=== PATIENT | female | born 1940 | race Caucasian/White ===

== ENCOUNTER → 2016-07-26 | Outpatient (RCR) ==
[2016-05-27 11:41] VITALS: BMI 27.4
== END ==
LOC: NEWBEG 06-26 00:01
PROVIDERS: ATTEND Psychiatry & Neurology Psychiatry
DX: F43.23 Adjustment disorder with mixed anxiety and depressed mood (principal); F06.0 Psychotic disorder with hallucinations due to known physiological condition; F01.51 Vascular dementia, unspecified severity, with behavioral disturbance
CPT/HCPCS: 90837; 90853; 99214

== ENCOUNTER → 2016-08-23 | Outpatient (RCR) ==
[2016-05-27 11:41] VITALS: BMI 27.4
== END ==
LOC: NEWBEG 07-27 09:07
PROVIDERS: ATTEND Psychiatry & Neurology Psychiatry
DX: F43.23 Adjustment disorder with mixed anxiety and depressed mood (principal); F06.0 Psychotic disorder with hallucinations due to known physiological condition; F01.51 Vascular dementia, unspecified severity, with behavioral disturbance
CPT/HCPCS: 90837; 99214

== ENCOUNTER 2016-08-24 09:05 | Outpatient (CLI) ==
[2016-05-27 11:41] VITALS: BMI 27.4
[2016-08-24 09:31] LABS: BASOPHILS # (AUTO) 0.1 K/uL (0-0.2); BASOPHILS % (AUTO) 1.1 % (0.0-3.0); EOSINOPHILS # (AUTO) 0.2 K/ul (0.0-0.7); EOSINOPHILS % (AUTO) 3.8 % (0.0-7.0); HEMATOCRIT 34.6 % (37.0-47.0); HEMOGLOBIN 10.5 g/dl (12.0-16.0); IMMATURE GRANULOCYTE % (AUTO) 0.3 % (0.0-5.0); LYMPHOCYTES % (AUTO) 32.4 (10.0-50.0); MEAN CORPUSCULAR HEMOGLOBIN 24.8 pg (27.0-31.0); MEAN CORPUSCULAR HGB CONC 30.3 (31.8-35.4); MEAN CORPUSCULAR VOLUME 81.6 fl (81.0-99.0); MONOCYTES # (AUTO) 0.3 K/uL (0.4-2.0); MONOCYTES % (AUTO) 5.4 (0-10); NEUTROPHILS # (AUTO) 3.6 K/ul (2.0-6.9); PLATELET COUNT 239 10^3/uL (140-440); RED BLOOD COUNT 4.24 10^6/ul (4.20-5.40); WHITE BLOOD COUNT 6.29 K/ul (4.6-10.2)
== END 2016-08-24 09:06 | disposition home or self-care (01) ==
LOC: LAB 09:05
PROVIDERS: ATTEND Psychiatry & Neurology Psychiatry
DX: F43.23 Adjustment disorder with mixed anxiety and depressed mood (principal); F06.0 Psychotic disorder with hallucinations due to known physiological condition; F01.51 Vascular dementia, unspecified severity, with behavioral disturbance; Z79.899 Other long term (current) drug therapy
CPT/HCPCS: 36415; 80178; 84443; 85025

== ENCOUNTER 2016-09-16 10:30 | Outpatient (RCR) ==
[2016-05-27 11:41] VITALS: BMI 27.4
== END 2016-09-23 ==
LOC: NEWBEG 10:30
PROVIDERS: ATTEND Psychiatry & Neurology Psychiatry
DX: F43.23 Adjustment disorder with mixed anxiety and depressed mood (principal); F06.0 Psychotic disorder with hallucinations due to known physiological condition; F01.51 Vascular dementia, unspecified severity, with behavioral disturbance
CPT/HCPCS: 90834; 99213; 99214

== ENCOUNTER 2017-02-08 16:13 | Outpatient (CLI) ==
[2016-05-27 11:41] VITALS: BMI 27.4
== END 2017-02-08 16:14 ==
LOC: AMBL 16:13
PROVIDERS: ATTEND Family Medicine
DX: R11.0 Nausea (principal); R61 Generalized hyperhidrosis

== ENCOUNTER 2017-07-24 16:07 | Inpatient (IN) ==
[2017-07-24] MEDS ORDERED: DUONEB NEB STA (16:26)
[2017-07-24] MEDS ORDERED: PREDNISONE PO STA (16:28)
--- NOTE | 2017-07-24 17:16 | CT ---
EXAM: CT chest without contrast HISTORY: Cough COMPARISON: Chest x-ray 05/27/2016 TECHNIQUE: Serial axial images of the chest were obtained from the lung apices to the upper abdomen without contrast. These were viewed in multiple planes. FINDINGS: The thyroid is normal. The visualized vessels are unremarkable without aneurysm or stenos is. The heart is normal in size without pericardial effusion. There are nonpathologically enlarged mediastinal or hilar lymph nodes. Calcified hilar lymph nodes and mediastinal lymph node are present. There is no pneumothorax or pleural effusion. There is bilateral mild central airway thickening. Th ere is minimal nodular ground-glass in the left lung apex on image 11. There is mild airway thickeni ng and ground-glass in the inferior lingula in the left lower lobe. The airways are maintained. Limited views of the soft tissues in the upper abdomen demonstrate prior cholecystectomy. Spleen dem onstrates calcified granulomas. Osseous structures are unremarkable. IMPRESSION: 1. Central and small airway thickening, most pronounced in the left lower lobe with mild hazy ground -glass suggestive of atypical infection/pneumonia. 2. Sequela of old granulomatous disease.
--- NOTE | 2017-07-24 17:24 | ED.PDOC ---
General ED Provider: Dr. JULIO DOUGLASS Chief Complaint: Respiratory Complaint Stated Complaint: cough, wheez , flu like symptoms Time Seen by Physician: 16:10 (seen with JOÃO ALONSO AT ALL TIMES ) Mode of Arrival: Wheelchair Information Source: Patient, Family Exam Limitations: No limitations Primary Care Provider: RADHA MENA Referred to ED by: Other (2 ROUNDS OF ANTIBIOTIC HAS NOT IMPROVED THE PT) Nursing and Triage Documentation Reviewed and Agree: Yes Reviewed sepsis parameters & appropriate labs ordered?: Yes System Inflammatory Response Syndrome: Not Applicable Sepsis Protocol: For patient's 13 years and over: Temp is 96.8 and below OR 101 and greater Pulse >90 BPM Resp >20/minute Acutely Altered Mental Status Are patient's symptoms suggestive of a new infection, such as: -Pneumonia -Skin, Soft Tissue -Endocarditis -UTI -Bone, Joint Infection -Implantable Device -Acute Abdominal Infection -Wound Infection -Meningitis -Blood Stream Catheter Infection -Unknown System Inflammatory Response Syndrome: Not Applicable Respiratory Complaint Exam - Respiratory Complaint/Exam Onset/Duration: 1 WEEK OF FLU LIKE SYMP NOT IMPROVED Symptoms Are: Still present Timing: Intermittent Initial Severity: Moderate Current Severity: Moderate Location: Nose, Throat, Chest Character: Reports: Non-productive cough Aggravating: Reports: Weather, Recumbent position Alleviating: Reports: Bronchodilators Associated Signs and Symptoms: Reports: Chills, URI, Nasal congestion Related History: Reports: Similar episode History of Healthcare-Acquired Pneumonia: No Related Surgical History: Reports: None Pulmonary Embolism Risk Factors: Bedrest Cardiac Risk Factors: Reports: CAD, Diabetes, Hypertension Pseudomonas Risk Factors: Reports: None Tuberculosis Risk Factors: Reports: None Status Asthmaticus Risk Factors: Reports: None Home Oxygen Use: No Recent Stress Test: No Recent Echo/LV Function: No Current Antibiotic Use: Yes (COMPELETED 2 ROUNDS ) Current Asthma Medication Use: No Respiratory Distress: Mild Inadequate Respiratory Effort: No Dysphagia Present: No Stridor Present: No JVD Present: No Retractions: Not Present Diminished Breath Sounds: Yes Prolonged Respiration: Expiratory phase Grunting Respirations: No Kussmaul Respirations: No Differential Diagnoses: COPD Exacerbation, Pneumonia, Bronchitis Quality Indicators For Pneumonia: Empiric Antibiotic Rx Non-Traumatic Chest Pain Syncope: EKG Performed Review of Systems - Review Of Systems Constitutional: Reports: Malaise Eyes: Reports: No symptoms Ears, Nose, Mouth, Throat: Reports: No symptoms Respiratory: Reports: Cough Cardiac: Reports: No symptoms GI: Reports: No symptoms : Reports: No symptoms Musculoskeletal: Reports: No symptoms Skin: Reports: No symptoms Neurological: Reports: No symptoms Endocrine: Reports: No symptoms Hematologic/Lymphatic: Reports: No symptoms All Other Systems: Reviewed and Negative Past Medical History - Past Medical History Previously Healthy: Yes Endocrine: Reports: DM 2, Hypothyroid Cardiovascular: Reports: CAD, Hypertension Respiratory: Reports: None Hematological: Reports: None Gastrointestinal: Reports: Other Genitourinary: Reports: None Neuro/Psych: Reports: 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 Denies: Bipolar Disorder (on lithium...) Musculoskeletal: Reports: None Cancer: Reports: None Last Menstrual Period: hysterectomy Other Pertinent Past Medical History: PARKINSON'S/STROKE LEFT SIDE AFFECTED - Surgical History General Surgical History: Reports: Hysterectomy, Cholecystectomy, Adenoidectomy , Other (COLON RESECTION DUE TO OBSTRUCTION) - Family History Family History: Reports: Unknown - Social History Smoking Status: Never smoker Hx Substance Use: No Alcohol Screening: None Physical Exam - Physical Exam Appearance: Ill-appearing Ill-appearing: Moderate Pain Distress: Mild Eyes: DARLING, EOMI, Conjunctiva clear ENT: Ears normal, Nose normal, Oropharynx normal Respiratory: Wheezes Cardiovascular: RRR, Pulses normal, No rub, No murmur GI/: Soft, Nontender, No masses, Bowel sounds normal, No Organomegaly Musculoskeletal: Normal strength, ROM intact, No edema, No calf tenderness Skin: Warm, Dry, Normal color Neurological: Sensation intact, Motor intact, Reflexes intact, Cranial nerves intact, Alert, Oriented Psychiatric: Affect appropriate, Mood appropriate Interpretation - Radiology Interpretation Radiology Interpretation By: Radiologist Radiology Results: Positive (LLL PNEUMONIA) Critical Care Note - Critical Care Note Total Time (mins): 0 Course - Course Hematology/Chemistry: 07/26/17 08:41 07/25/17 05:22 Orders, Labs, Meds: Lab Review 07/24/17 07/24/17 07/24/17 16:30 16:30 16:30 WBC 13.58 H RBC 4.23 Hgb 11.9 L Hct 35.1 L MCV 83.0 MCH 28.1 MCHC 33.9 RDW Coeff of Jasmin 14.6 Plt Count 210 Immature Gran % (Auto) 0.6 Neut % (Auto) 67.4 Lymph % (Auto) 24.7 Pierce % (Auto) 6.3 Eos % (Auto) 0.4 Baso % (Auto) 0.6 Immature Gran # (Auto) 0.1 Neut # 9.2 H Lymph # 3.4 Pierce # 0.9 Eos # 0.1 Baso # 0.1 Sodium 140 Potassium 3.8 Chloride 107 Carbon Dioxide 21 L Anion Gap 15.8 BUN 22 H Creatinine 1.20 Estimated GFR (MDRD) 44.00 BUN/Creatinine Ratio 18.33 Glucose 107 Calcium 10.2 Total Bilirubin 0.4 AST 20 ALT 21 Alkaline Phosphatase 80 Total Creatine Kinase 161 CK-MB (CK-2) 2.3 CK-MB (CK-2) % 1.59719 Troponin I < 0.0100 Total Protein 7.0 Albumin 3.5 Globulin 3.5 Albumin/Globulin Ratio 1.00 Procalcitonin 0.19 Orders Category Date Time Status EKG-(ED ONLY) Stat CARDIO 07/24/17 16:19 Completed NEBULIZER TREATMENT Stat CARDIO 07/24/17 16:26 Completed BLOOD CULTURE Stat LAB 07/24/17 16:30 Results CBC W/ AUTO DIFF Stat LAB 07/24/17 16:30 Completed COMPREHENSIVE METABOLIC PANEL Stat LAB 07/24/17 16:30 Completed CREATINE KINASE Stat LAB 07/24/17 16:30 Completed PROCALCITONIN Stat LAB 07/24/17 16:30 Completed TROPONIN I Stat LAB 07/24/17 16:30 Completed Ceftriaxone Sodium [Rocephin] MEDS 07/24/17 19:13 Discontinued 1 gm .ROUTE .STK-MED ONE Ceftriaxone Sodium [Rocephin] 1 gm MEDS 07/24/17 17:28 Discontinued 0.9 % Sodium Chloride [Sodium Chloride] 50 ml IV ONCE Ipratropium/Albuterol Neb [Duoneb] MEDS 07/24/17 16:26 Discontinued 1 vial NEB ONCE STA Prednisone MEDS 07/24/17 16:28 Discontinued 40 mg PO ONCE STA CT CHEST W/O CONTRAST Stat RADS 07/24/17 16:20 Completed Medications Generic Name Dose Route Start Last Admin Trade Name Freq PRN Reason Stop Dose Admin Acetaminophen 325 mg 07/25/17 06:03 Tylenol PO Q4-6H PRN Mild Pain Amlodipine Besylate 5 mg 07/25/17 09:00 07/28/17 08:58 Norvasc PO 5 mg DAILY JERI Administration Azelastine HCl 1 spray 07/25/17 10:00 07/28/17 08:56 Astelin 0.1% APRIL 1 spray BID JERI Administration Azithromycin 250 mg 07/26/17 09:00 07/28/17 08:58 Zithromax PO 07/29/17 23:59 250 mg DAILY JERI Administration Benzonatate 100 mg 07/25/17 17:07 07/27/17 14:08 Tessalon Perles PO 100 mg TID PRN Administration Cough Budesonide/Formoterol Fumarate 2 puff 07/27/17 21:00 07/28/17 08:56 Symbicort 160-4.5 Mcg Inhaler IH 2 puff BID JERI Administration Colestipol HCl 1 gm 07/26/17 15:02 07/28/17 08:57 Colestid PO 1 gm TID PRN Administration Diarrhea Docusate Sodium 100 mg 07/25/17 06:04 Colace PO DAILY PRN Constipation Fluticasone Propionate 1 spray 07/25/17 06:30 07/27/17 09:01 Flonase APRIL 1 spray DIRECTED JERI Administration Guaifenesin 1,200 mg 07/27/17 21:00 07/28/17 08:57 Mucinex PO 1,200 mg Q12HR JERI Administration Ceftriaxone Sodium 1 gm/ 50 mls @ 75 mls/hr 07/26/17 09:00 07/28/17 08:59 Sodium Chloride IV 75 mls/hr DAILY JERI Administration Ketorolac Tromethamine 30 mg 07/25/17 15:21 07/28/17 09:47 Toradol IVP 30 mg Q8H PRN Administration moderate to severe pain Levalbuterol HCl 1 vial 07/28/17 00:00 07/28/17 17:00 Xopenex 1.25 Mg NEB 1 vial RTQ6H JERI Administration Levothyroxine Sodium 75 mcg 07/25/17 06:30 07/28/17 05:39 Synthroid PO 75 mcg QDAC JERI Administration Lisinopril 10 mg 07/25/17 09:00 07/28/17 08:58 Zestril PO 10 mg DAILY JERI Administration Methylprednisolone Sodium Succinate 40 mg 07/25/17 09:00 07/28/17 09:47 Solu-Medrol 40 Mg IVP 40 mg Q12HR JERI Administration Montelukast Sodium 10 mg 07/25/17 09:00 07/28/17 08:58 Singulair PO 10 mg DAILY JERI Administration Morphine Sulfate 2 mg 07/24/17 22:18 07/28/17 13:46 Morphine 2 Mg/Ml Syringe IVP 2 mg Q2H PRN Administration Severe Pain Non-Formulary Medication 3 mg 07/25/17 21:00 07/27/17 22:04 Melatonin [Melatonin] PO Not Given BEDTIME JERI Ondansetron HCl 4 mg 07/25/17 15:21 07/27/17 14:26 Zofran 4 Mg/2 Ml IVP 4 mg Q6H PRN Administration Nausea/Vomitting Phenol/Menthol 1 spray 07/25/17 08:26 07/25/17 09:25 Chloraseptic [place] MM 1 spray Q2H PRN Administration Sore Throat Ranitidine HCl 150 mg 07/25/17 21:00 07/27/17 22:02 Zantac PO 150 mg BEDTIME JERI Administration Sodium Chloride 1 syr 07/26/17 21:00 07/28/17 13:46 Saline Flush IVF 1 syr Q8HR JERI Administration Sodium Chloride 1 syr 07/26/17 19:23 07/28/17 09:00 Saline Flush IVF 1 syr PRN PRN Administration Flush site Temazepam 30 mg 07/25/17 21:00 07/27/17 22:02 Restoril PO 30 mg BEDTIME JERI Administration Discontinued Medications Generic Name Dose Route Start Last Admin Trade Name Freq PRN Reason Stop Dose Admin Albuterol/Ipratropium 1 vial 07/24/17 16:26 07/24/17 16:53 Duoneb NEB 07/24/17 16:27 1 vial ONCE STA Administration Albuterol/Ipratropium 1 vial 07/25/17 00:00 07/27/17 04:55 Duoneb NEB 1 vial RTQ6H JERI Administration Albuterol/Ipratropium 1 vial 07/27/17 10:00 07/27/17 21:03 Duoneb NEB Not Given RTQID JERI Azelastine HCl 1 spray 07/25/17 06:30 Astelin 0.1% APRIL DIRECTED JERI Azithromycin 500 mg 07/25/17 17:06 07/25/17 17:32 Zithromax PO 07/25/17 17:07 500 mg ONCE STA Administration Cefdinir 300 mg 07/25/17 09:00 07/25/17 09:22 Omnicef PO Not Given TID JERI Colestipol HCl 1 gm 07/25/17 09:00 07/26/17 15:01 Colestid PO Not Given TID JERI Ceftriaxone Sodium 1 gm/ 50 mls @ 75 mls/hr 07/24/17 17:28 07/24/17 17:46 Sodium Chloride IV 07/24/17 18:07 Not Given ONCE STA Ceftriaxone Sodium 1 gm/ 50 mls @ 75 mls/hr 07/25/17 09:00 07/25/17 09:15 Sodium Chloride IV 07/25/17 09:39 75 mls/hr ONCE ONE Administration Sodium Chloride 1,000 mls @ 80 mls/hr 07/24/17 21:30 07/26/17 14:30 Sodium Chloride IV Not Given .[id number] JERI Levalbuterol HCl 1 vial 07/24/17 20:46 07/24/17 21:55 Xopenex 1.25 Mg NEB 07/24/17 20:47 1 vial ONCE STA Administration Metoprolol Tartrate 10 mg 07/27/17 17:25 07/27/17 17:45 Lopressor IVP 07/27/17 17:26 10 mg ONCE STA Administration Prednisone 40 mg 07/24/17 16:28 07/24/17 16:54 Prednisone PO 07/24/17 16:29 Not Given ONCE STA Vital Signs: Temp Pulse Resp BP Pulse Ox 07/24/17 16:09 97.9 F 81 20 126/81 96 Departure - Departure Time of Disposition: 17:28 (PT REFUSED PREDNISONE AND REPEAT FLU SWAB. THROUGH OUT MY INTERACTION WITH PT ALEXANDRA AND JOÃO WERE PRESENT WLL DISCUSS ADMISSION ) Disposition: ADMITTED INPATIENT Discharge Problem: LLL pneumonia Qualifiers: Pneumonia type: due to unspecified organism Qualified Code(s): J18.1 - Lobar pneumonia, unspecified organism Condition: Good Pt referred to PMD for follow-up: Yes IPMP verified?: Yes Allergies/Adverse Reactions: Allergies No Known Allergies Allergy (Verified 07/24/17 16:25) Home Medications: Ambulatory Orders Acetaminophen [Pain Reliever] 325 mg PO Q4-6H PRN 11/05/15 Docusate Sodium [Colace] 100 mg PO DAILY PRN 11/05/15 Levothyroxine Sodium [Synthroid] 75 mcg PO QDAC 11/05/15 Montelukast Sodium [Singulair] 10 mg PO DAILY 05/27/16 Amlodipine Besylate [Norvasc] 5 mg PO DAILY 07/24/17 Azelastine HCl [Astelin 0.1%] 1 spray NS DIRECTED 07/24/17 Colestipol HCl [Colestid] 1 gm PO TID 07/24/17 Fluticasone Propionate [Flonase] 1 spray APRIL DIRECTED 07/24/17 Lisinopril [Zestril] 10 mg PO DAILY 07/24/17 Melatonin 3 mg PO BEDTIME 07/24/17 Ranitidine HCl [Acid Control] 150 mg PO BEDTIME 07/24/17 Temazepam [Restoril] 30 mg PO BEDTIME 07/24/17 Multivitamin [Daily Multiple Vitamin] 1 each PO DAILY 07/25/17 Disposition Discussed With: Patient
[2017-07-24] MEDS: ROCEPHIN 1 GM in SODIUM CHLORIDE 50 ML IV STA ×2 (17:46)
[2017-07-24] MEDS ORDERED: ROCEPHIN ONE (19:13)
[2017-07-24] MEDS ORDERED: XOPENEX 1.25 MG NEB STA (20:46)
[2017-07-24 21:40] VITALS: BMI 29.2
[2017-07-24] MEDS: MORPHINE 2 MG/ML SYRINGE IVP PRN (22:23)
[2017-07-24] MEDS: SODIUM CHLORIDE 1,000 ML IV SCH (22:24)
[2017-07-25] MEDS: MORPHINE 2 MG/ML SYRINGE IVP PRN (03:34)
[2017-07-25] MEDS: DUONEB NEB SCH ×5 (05:10→22:55)
[2017-07-25] MEDS ORDERED: TYLENOL PO PRN (06:03)
[2017-07-25] MEDS ORDERED: COLACE PO PRN (06:04)
[2017-07-25] MEDS ORDERED: ASTELIN 0.1% NAS SCH (06:30)
[2017-07-25] MEDS: SYNTHROID PO SCH (07:36)
[2017-07-25] MEDS ORDERED: CHLORASEPTIC SPRAY MM PRN (08:26)
[2017-07-25] MEDS ORDERED: OMNICEF PO SCH (09:00)
[2017-07-25] MEDS ORDERED: ROCEPHIN 1 GM in SODIUM CHLORIDE 50 ML IV ONE (09:00)
[2017-07-25] MEDS: SODIUM CHLORIDE 1,000 ML IV SCH ×2 (09:15→22:40)
[2017-07-25] MEDS: ZESTRIL PO SCH (09:21)
[2017-07-25] MEDS: SINGULAIR PO SCH (09:22)
[2017-07-25] MEDS: NORVASC PO SCH (09:22)
[2017-07-25] MEDS: COLESTID PO SCH ×3 (09:22→20:40)
[2017-07-25] MEDS: FLONASE NAS SCH (09:23)
[2017-07-25] MEDS: SOLU-MEDROL 40 MG IVP SCH ×2 (09:25→21:55)
[2017-07-25] MEDS: ASTELIN 0.1% NAS SCH ×2 (10:10→20:39)
--- NOTE | 2017-07-25 15:34 | DI ---
EXAM: CHEST FRONTAL AND LATERAL VIEWS HISTORY: Shortness of breath. COMPARISON: 05/27/2016 FINDINGS: Heart size and mediastinal contour remain within normal limits. There is at least mild a ortic atherosclerosis. There may be subtle left lingular infiltrate. This is questionable. Lungs ar e otherwise unremarkable. Normal vascularity. No pleural fluid. IMPRESSION: Questionable subtle left lingular infiltrate.
[2017-07-25] MEDS: ZOFRAN 4 MG/2 ML IVP PRN (16:23)
[2017-07-25] MEDS: TORADOL IVP PRN (16:23)
[2017-07-25] MEDS ORDERED: ZITHROMAX PO STA (17:06)
[2017-07-25] MEDS ORDERED: TESSALON PERLES PO PRN (17:07)
--- NOTE | 2017-07-25 17:10 | RS.OTINEVL ---
Subjective - Patient information Date of Evaluation: 07/25/17 Date of Arrival on Unit: 07/24/17 Admitted From:: Emergency Dept Diagnosis: pneumonia Usual Living Arrangement: [facility] Living Arrangement Comments: Pt living in assisted living and is independent with all ADLS. Pt drove a car and did her own shopping. Home Environment: Apartment Medical History: CVA/TIA Medical History Comments:: Parkinson's, DVT/PE, Glaucoma, Falls, Neck pain, shoulder pain Surgical History: Cholecystectomy, Hysterectomy Surgical History Comments:: appendectomy, hysterectomy, cholecystectomy Subjective Information/ Patient Comments:: "I don't think I belong at [facility]. 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 I am a healthy 76 y/o. " "I drive, shop, and take care of myself." - Level of function Abilities prior to this admission: Independent, drove a car, no AE Current Level of Function: Independent Current Equipment Used at Home: none. Pain Assessment - Pain Pain Score: 3 Side: bilateral Pain Location Body Site: Neck Pain Alleviating Factors: Medication Interventions - Objective Patient Orientation: Person, Place, Time, Situation Current Interventions: IV's Observation: Pt is coughing. Pt is coughing up sputum. Pt is short of breath with talking. Pt gets fatigued talking. Pt is weak and would benefit from skilled OT to strengthen her BUE and upper body. Interventions - ROM Right Upper Extremity AROM: WFL's Left Upper Extremity AROM: WFL's - Strength Right Upper Extremity Strength: Mild Weakness Left Upper Extremity Strength: Mild Weakness - Sensation Right Upper Extremity Sensation: Intact/Normal Left Upper Extremity Sensation: Intact/Normal Balance - Sitting Balance Static Sitting Balance: Good Dynamic Sitting Balance: Good - Standing Balance Static Standing Balance: Good Dynamic Standing Balance: Fair ADL Skills - Self Feeding Self Feeding: Independent - Grooming Grooming: Independent - Bathing Bathing UE: Independent Bathing LE: Independent - Dressing Dressing UE: Independent Dressing LE: Independent - Toilet Management Toileting Management: Independent Functional Mobility - Bed Mobility Rolling R/L: Independent Scooting: Independent Supine to Sit: Independent Sit to Supine: Independent - Transfers Sit to Stand: Independent Stand to Sit: Independent Stand Pivot Transfers: Independent Additional Treatment Performed - Time with patient Total treatment time: 24 Activities Patient Interests:: Watching Television, Visiting/Socializing Patient Education Patient Education: Education of diagnosis, Home Exercise Program, Education of Plan of Care Teaching Recipient: Patient Teaching Methods: Discussion Assessment Problem List:: Decreased safety/Risk of falls, Weakness, Pain limits previous level of function Rehab Potential: Good Further Therapy Indicated?: Yes Short Term Goals - Goals GOAL 1: Pt to tolerate 10 minutes of standing activity. Goal to be met by: 07/28/17 GOAL 2: Pt to be CGA for sink level ADLS. Goal to be met by: 07/28/17 GOAL 3: Pt to increase BUE strength to 4/5. Goal to be met by: 07/28/17 Branch Lead Goals GOAL 1: Pt to tolerate 10 minutes of standing activity. Goal to be met by: 08/04/17 GOAL 2: Pt to be I for sink level ADLS. Goal to be met by: 08/04/17 GOAL 3: Pt to increase BUE strength to 4+/5. Goal to be met by: 08/04/17 Plan Has the Physician been added for Co-signature?: Yes
[2017-07-25] MEDS: RESTORIL PO SCH (20:39)
[2017-07-25] MEDS: NON-FORMULARY MEDICATION (Melatonin [Melatonin] 3 MG) PO SCH (20:40)
[2017-07-25] MEDS: ZANTAC PO SCH (20:40)
[2017-07-25] MEDS ORDERED: NON-FORMULARY MEDICATION (Temazepam [Restoril] 30 MG) PO SCH (21:00)
[2017-07-26] MEDS: TORADOL IVP PRN ×2 (04:07→13:20)
[2017-07-26] MEDS: DUONEB NEB SCH ×4 (05:10→22:58)
[2017-07-26] MEDS: SYNTHROID PO SCH (05:44)
[2017-07-26] MEDS: ROCEPHIN 1 GM in SODIUM CHLORIDE 50 ML IV SCH (08:46)
[2017-07-26] MEDS: FLONASE NAS SCH (08:47)
[2017-07-26] MEDS: COLESTID PO SCH ×2 (08:47→15:01)
[2017-07-26] MEDS: ZITHROMAX PO SCH (08:47)
[2017-07-26] MEDS: SOLU-MEDROL 40 MG IVP SCH ×2 (08:48→20:59)
[2017-07-26] MEDS: NORVASC PO SCH (08:48)
[2017-07-26] MEDS: ZESTRIL PO SCH (08:48)
[2017-07-26] MEDS: ASTELIN 0.1% NAS SCH ×2 (08:55→21:01)
[2017-07-26] MEDS: SINGULAIR PO SCH (08:55)
[2017-07-26] MEDS: SODIUM CHLORIDE 1,000 ML IV SCH (14:30)
--- NOTE | 2017-07-26 16:14 | DI ---
Exam: Two x-rays of the chest. Comparison: 07/25/2017. Reason for exam: Short of breath. FINDINGS: No pneumothorax, pleural effusion, or focal consolidation. The cardiac silhouette is not enlarged. The imaged osseous structures appear grossly unremarkable without acute fracture. Impression: No acute cardiopulmonary process.
[2017-07-26] MEDS: ZOFRAN 4 MG/2 ML IVP PRN (18:10)
[2017-07-26] MEDS: COLESTID PO PRN (18:10)
[2017-07-26] MEDS: MORPHINE 2 MG/ML SYRINGE IVP PRN (19:18)
[2017-07-26] MEDS: ZANTAC PO SCH (20:58)
[2017-07-26] MEDS: RESTORIL PO SCH (20:58)
[2017-07-26] MEDS: NON-FORMULARY MEDICATION (Melatonin [Melatonin] 3 MG) PO SCH (21:03)
[2017-07-27] MEDS: DUONEB NEB SCH ×4 (04:55→21:03)
[2017-07-27] MEDS: SYNTHROID PO SCH (05:50)
[2017-07-27] MEDS: ZOFRAN 4 MG/2 ML IVP PRN ×2 (08:56→14:26)
[2017-07-27] MEDS: SOLU-MEDROL 40 MG IVP SCH ×2 (08:56→22:03)
[2017-07-27] MEDS: ROCEPHIN 1 GM in SODIUM CHLORIDE 50 ML IV SCH (08:56)
[2017-07-27] MEDS: NORVASC PO SCH (09:01)
[2017-07-27] MEDS: ZESTRIL PO SCH (09:01)
[2017-07-27] MEDS: FLONASE NAS SCH (09:01)
[2017-07-27] MEDS: ZITHROMAX PO SCH (09:01)
[2017-07-27] MEDS: SINGULAIR PO SCH (09:01)
[2017-07-27] MEDS: ASTELIN 0.1% NAS SCH ×2 (09:02→22:00)
[2017-07-27] MEDS ORDERED: LOPRESSOR IVP STA (17:25)
[2017-07-27] MEDS: MORPHINE 2 MG/ML SYRINGE IVP PRN ×2 (18:07→22:56)
[2017-07-27] MEDS: SYMBICORT 160-4.5 MCG INHALER IH SCH (21:59)
[2017-07-27] MEDS: RESTORIL PO SCH (22:02)
[2017-07-27] MEDS: MUCINEX PO SCH (22:02)
[2017-07-27] MEDS: ZANTAC PO SCH (22:02)
[2017-07-27] MEDS: NON-FORMULARY MEDICATION (Melatonin [Melatonin] 3 MG) PO SCH (22:04)
[2017-07-27] MEDS: XOPENEX 1.25 MG NEB SCH (23:47)
[2017-07-28] MEDS: XOPENEX 1.25 MG NEB SCH ×3 (05:07→17:00)
[2017-07-28] MEDS: SYNTHROID PO SCH (05:39)
[2017-07-28] MEDS: SYMBICORT 160-4.5 MCG INHALER IH SCH ×2 (08:56→20:01)
[2017-07-28] MEDS: ASTELIN 0.1% NAS SCH ×2 (08:56→20:00)
[2017-07-28] MEDS: MUCINEX PO SCH ×2 (08:57→20:01)
[2017-07-28] MEDS: COLESTID PO PRN (08:57)
[2017-07-28] MEDS: ZESTRIL PO SCH (08:58)
[2017-07-28] MEDS: SINGULAIR PO SCH (08:58)
[2017-07-28] MEDS: NORVASC PO SCH (08:58)
[2017-07-28] MEDS: ZITHROMAX PO SCH (08:58)
[2017-07-28] MEDS: ROCEPHIN 1 GM in SODIUM CHLORIDE 50 ML IV SCH (08:59)
[2017-07-28] MEDS: SOLU-MEDROL 40 MG IVP SCH ×2 (09:47→20:00)
[2017-07-28] MEDS: TORADOL IVP PRN (09:47)
[2017-07-28] MEDS: MORPHINE 2 MG/ML SYRINGE IVP PRN (13:46)
[2017-07-28] MEDS: ZOFRAN 4 MG/2 ML IVP PRN (18:46)
[2017-07-28] MEDS: ZANTAC PO SCH (20:00)
[2017-07-28] MEDS: RESTORIL PO SCH (20:00)
[2017-07-28] MEDS: NON-FORMULARY MEDICATION (Melatonin [Melatonin] 3 MG) PO SCH (20:02)
[2017-07-29] MEDS: XOPENEX 1.25 MG NEB SCH ×4 (00:05→16:55)
[2017-07-29] MEDS: SYNTHROID PO SCH (05:41)
[2017-07-29] MEDS: ROCEPHIN 1 GM in SODIUM CHLORIDE 50 ML IV SCH (08:38)
[2017-07-29] MEDS: SOLU-MEDROL 40 MG IVP SCH ×2 (08:39→20:27)
[2017-07-29] MEDS: SYMBICORT 160-4.5 MCG INHALER IH SCH ×2 (08:39→20:27)
[2017-07-29] MEDS: ASTELIN 0.1% NAS SCH ×2 (08:39→20:26)
[2017-07-29] MEDS: ZESTRIL PO SCH (08:40)
[2017-07-29] MEDS: NORVASC PO SCH (08:40)
[2017-07-29] MEDS: MUCINEX PO SCH ×2 (08:40→20:27)
[2017-07-29] MEDS: ZITHROMAX PO SCH (08:41)
[2017-07-29] MEDS: SINGULAIR PO SCH (08:41)
[2017-07-29] MEDS: TORADOL IVP PRN (10:36)
[2017-07-29] MEDS: MORPHINE 2 MG/ML SYRINGE IVP PRN (13:33)
[2017-07-29] MEDS: ZOFRAN 4 MG/2 ML IVP PRN (14:09)
[2017-07-29] MEDS ORDERED: DULCOLAX RC STA (19:24)
[2017-07-29] MEDS: NON-FORMULARY MEDICATION (Melatonin [Melatonin] 3 MG) PO SCH (20:28)
[2017-07-29] MEDS: ZANTAC PO SCH (20:28)
[2017-07-29] MEDS: RESTORIL PO SCH (20:28)
[2017-07-29] MEDS: ATROVENT 0.02% NEB NEB SCH (22:10)
[2017-07-30] MEDS: ATROVENT 0.02% NEB NEB SCH ×6 (01:00→20:55)
[2017-07-30] MEDS: SYNTHROID PO SCH (05:35)
[2017-07-30] MEDS: SYMBICORT 160-4.5 MCG INHALER IH SCH ×2 (08:43→21:25)
[2017-07-30] MEDS: MUCINEX PO SCH ×2 (08:44→21:26)
[2017-07-30] MEDS: ZESTRIL PO SCH (08:44)
[2017-07-30] MEDS: ROCEPHIN 1 GM in SODIUM CHLORIDE 50 ML IV SCH ×2 (08:44→14:38)
[2017-07-30] MEDS: ASTELIN 0.1% NAS SCH ×2 (08:44→21:25)
[2017-07-30] MEDS: SINGULAIR PO SCH (08:44)
[2017-07-30] MEDS: NORVASC PO SCH (08:45)
[2017-07-30] MEDS: ZOFRAN 4 MG/2 ML IVP PRN (12:42)
[2017-07-30] MEDS ORDERED: MORPHINE 2 MG/ML SYRINGE IM PRN (14:10)
[2017-07-30] MEDS ORDERED: TORADOL IM PRN (14:10)
[2017-07-30] MEDS ORDERED: ZOFRAN 4 MG/2 ML IM PRN (14:10)
[2017-07-30] MEDS: SOLU-MEDROL 40 MG IVP SCH (14:39)
[2017-07-30] MEDS: OMNICEF PO SCH ×2 (14:49→21:26)
[2017-07-30] MEDS ORDERED: SOLU-MEDROL 40 MG IM SCH (21:00)
[2017-07-30] MEDS: RESTORIL PO SCH (21:26)
[2017-07-30] MEDS: ZANTAC PO SCH (21:26)
[2017-07-30] MEDS: NON-FORMULARY MEDICATION (Melatonin [Melatonin] 3 MG) PO SCH (21:26)
[2017-07-30 23:56] VITALS: TEMP 98.1
[2017-07-31] MEDS: ATROVENT 0.02% NEB NEB SCH ×2 (02:20→05:08)
[2017-07-31 05:20] VITALS: BP 120/63
[2017-07-31] MEDS: SYNTHROID PO SCH (05:37)
[2017-07-31] MEDS ORDERED: PREDNISONE PO SCH (08:00)
[2017-07-31] MEDS: ASTELIN 0.1% NAS SCH (09:24)
[2017-07-31] MEDS: SYMBICORT 160-4.5 MCG INHALER IH SCH (09:24)
[2017-07-31] MEDS: MUCINEX PO SCH (09:25)
[2017-07-31] MEDS: ZESTRIL PO SCH (09:25)
[2017-07-31] MEDS: SINGULAIR PO SCH (09:25)
[2017-07-31] MEDS: OMNICEF PO SCH (09:25)
[2017-07-31] MEDS: NORVASC PO SCH (09:25)
[2017-07-31] MEDS: FLONASE NAS SCH (09:25)
--- NOTE | 2017-08-03 10:50 | PN ---
DATE OF SERVICE: 07/26/17 CHIEF COMPLAINT: "I keep coughing." BRIEF HISTORY OF PRESENT ILLNESS: She has had several days of upper respiratory symptomatology treated as an outpatient and failed. She was admitted and has been on IV steroids, Rocephin, Zithromax and nebulized duonebs. She feels somewhat better with somewhat less cough. Back on her regular medication she did sleep better last night. PHYSICAL EXAMINATION: V/S: Temperature 97.6, BP 116/63, pulse 80, respirations 20. GENERAL: No obvious distress; slightly tremorous left upper extremity. HEENT: Facial symmetry. Pupils are equal. Oral cavity without exudate. NECK: No mass and supple; nontender. CHEST: Coarse, maybe an occasional crackle. No wheeze. CARDIOVASCULAR: S1, S2 without murmur. Trace ankle edema. GI: Nontender. LABS/X-RAYS: White count 14, hemoglobin 10, BNP 144 and slightly elevated. GFR 44. ASSESSMENT: 1. Cough - poor response to outpatient therapy - seems to be associated with acute bronchitis or mild degree of pneumonia (questionable CT). 2. Questionable pneumonia on CT. 3. Acute bronchitis. 4. Fatigue. 5. Gait decline - acute on chronic with acute illness. 6. Hoarseness. 7. Slight elevated BNP. 8. Anemia 10.9 (somewhat dilutional from fluids). 9. Renal insufficiency - maybe a little acute on possible chronic - to be figured out. PLAN: 1. Medications reviewed: a) Continue same. b) Fluids - stop IV. 2. Imaging - adding a chest x-ray today. 3. Activity - encouraged. 4. Diet - same - encouraged. 5. Discharge planning - she expects home. 6. Code Status - full. I am leaving town. Dr. Salazar is covering. [facility]
--- NOTE | 2017-08-21 13:29 | DS ---
DATE OF SERVICE: 07/31/17 HOSPITAL COURSE: Ms. Young presented with a persisting cough. She had no known chronic respiratory disease. She became ill on 07/11 with URI symptoms. She was flu negative in the office on 07/14. She was treated with Omnicef and Medrol and did not seem to improve. She presented to the ED where CT scan was suggestive of possible left lower lobe infiltrate which was seen on plain films. She was admitted. I saw her on 07/26/17 and she was improved. I left her with Dr. Salazar and he discharged her on the date noted. She was treated with IV antibiotics, nebulized bronchodilators, steroids, physical therapy, supplemental oxygen, skilled care nursing and rest. She again improved to the point that she was weaned and transferred to the outpatient arena. White count started at 13 and actually steroids went to 19. Hemoglobin was 11 and remained in that range. Normocytic with no signs of bleeding. Her initial GFR was 44 and went to 55 with fluids. There as no other significant patterns or problems with her labs. We did check a BNP and it was slightly elevated at 144. Cardiac enzymes, procalcitonin were negative. Chest x-ray 07/26 was normal. DISCHARGE ASSESSMENT/PROBLEM LIST (CHANGED FROM ADMISSION): 76-year-old white female allergies/intolerances - none Cough - poor response to outpatient therapy - seems to be associated with acute bronchitis or mild degree of pneumonia (questionable CT). Questionable pneumonia on CT. Acute bronchitis. Fatigue. Gait decline - acute on chronic with acute illness. Hoarseness. Slight elevated BNP. Anemia 10.9 (somewhat dilutional from fluids). Renal insufficiency - maybe a little acute on possible chronic - to be figured out. PLAN: 1. Discharge in my absence by Dr. Salazar 2. See all discharge packet, Advanced Visit Summary MTDD
== END 2017-07-31 09:45 | disposition home or self-care (01) | DRG 193 ==
LOC: ED 16:07 → MEDSURG A 20:16
PROVIDERS: ADMIT Family Medicine; ATTEND Family Medicine
DX: J18.9 Pneumonia, unspecified organism (principal); J20.9 Acute bronchitis, unspecified; R05 Cough; R53.83 Other fatigue; D64.9 Anemia, unspecified; N28.9 Disorder of kidney and ureter, unspecified; I63.8 Other cerebral infarction; G81.92 Hemiplegia, unspecified affecting left dominant side; G40.89 Other seizures; E11.9 Type 2 diabetes mellitus without complications; R06.2 Wheezing; R68.83 Chills (without fever); R09.81 Nasal congestion; I25.10 Atherosclerotic heart disease of native coronary artery without angina pectoris; I10 Essential (primary) hypertension; E03.9 Hypothyroidism, unspecified; G20 Parkinson's disease; R26.9 Unspecified abnormalities of gait and mobility; R49.0 Dysphonia
CPT/HCPCS: 36415; 80048; 80053; 82550; 82553; 83880; 84145; 84484; 85025; 87040; 93005; 93010; 94640; 96365; 99285

== ENCOUNTER 2017-09-26 13:30 | Outpatient (CLI) | payer OTHER ==
--- NOTE | 2017-09-26 15:41 | DI ---
EXAM: Chest two view, frontal and lateral views. HISTORY: Cough. COMPARISON: 07/26/2017. FINDINGS: The heart size is normal. There is no pulmonary vascular congestion. The lungs are clear . No pleural effusion or pneumothorax is seen. No acute osseous abnormality identified. Right uppe r quadrant surgical clips noted. Since the prior study, there has been no significant interval change . IMPRESSION: No acute cardiopulmonary process.
== END 2017-09-26 13:31 | disposition home or self-care (01) ==
LOC: RAD 13:30
PROVIDERS: ATTEND Family Medicine
DX: R05 Cough (principal)

== ENCOUNTER 2017-10-17 12:33 | Outpatient (CLI) ==
--- NOTE | 2017-10-18 14:40 | HOLTER ---
PATIENT INFORMATION AND COMMENTS Attending Physician: DR. RADHA MENA Indications: ARRHYTHMIA __ Patient Medications: AMLODIPINE, AZELASTINE, COLESTIPOL, FLUTICASONE, GUAIFENESIN, LEVOTHYROXINE, LOSARTAN, SINGULAIR, PROTONIX, RESTORIL __ Pre-procedure Summary: Protocol: Standard Heart Rate Started: 10/17/17 1256 Minimum: 54 BPM Weight: 163 LBS Ended: 10/18/17 1256 Maximum: 138 BPM Height: 62" Duration: 23 HRS 51 MIN Average: 81 BPM _ INTERPRETATIONS/OBSERVATIONS: 1. BASIC RHYTHM: SINUS, RATE 54 BPM TO 130 BPM, AVERAGE 80 BPM 2. PAC'S NOTED--FREQUENT AT TIMES, 10% OF BEATS SCANNED 3. ONE RUN OF SVT WITH RATE 130 BPM NOTED, CONSISTING OF 16 BEATS 4. PVC'S 5. ACTIVITY LOG NOT MAINTAINED MTDD
== END 2017-10-17 12:34 | disposition home or self-care (01) ==
LOC: CAR 12:33
PROVIDERS: ATTEND Family Medicine
DX: I49.9 Cardiac arrhythmia, unspecified (principal)
CPT/HCPCS: 93227

== ENCOUNTER 2017-11-22 15:34 | Outpatient (CLI) | END 2017-11-22 15:35 | disposition home or self-care (01) | LOC: LAB 15:34 | PROVIDERS: ATTEND Internal Medicine Pulmonary Disease | DX: R05 Cough (principal) | CPT/HCPCS: 36415; 82784; 82785; 82787; 85025 ==

== ENCOUNTER 2017-12-25 13:18 | Outpatient (CLI) ==
[2017-12-25] MEDS ORDERED: PROLIA SUBCUT STA (13:37)
[2017-12-25 13:40] VITALS: BP 118/70; TEMP 98.6
== END 2017-12-25 13:19 | disposition home or self-care (01) ==
LOC: OPMED 13:18
PROVIDERS: ATTEND Family Medicine
DX: M81.0 Age-related osteoporosis without current pathological fracture (principal)
CPT/HCPCS: 96372

== ENCOUNTER 2018-02-16 17:09 | Emergency (ER) | payer OTHER ==
[2018-02-16 17:16] VITALS: BP 150/82; TEMP 98.2; BMI 29.7
[2018-02-16] MEDS: ZOFRAN 4 MG/2 ML IVP STA ×2 (18:06→18:45)
--- NOTE | 2018-02-16 18:07 | ED.PDOC ---
General ED Provider: Dr. JULIO DOUGLASS Chief Complaint: Chest Pain Stated Complaint: CHEST PAIN Time Seen by Physician: 17:14 (SEEN WITH ROLY AT ALL TIMES ) Mode of Arrival: Walk-In Information Source: Patient Exam Limitations: No limitations Primary Care Provider: RADHA MENA Nursing and Triage Documentation Reviewed and Agree: Yes Does patient meet sepsis criteria?: No System Inflammatory Response Syndrome: Not Applicable Sepsis Protocol: For patient's 13 years and over: Temp is 96.8 and below OR 101 and greater Pulse >90 BPM Resp >20/minute Acutely Altered Mental Status Are patient's symptoms suggestive of a new infection, such as: -Pneumonia -Skin, Soft Tissue -Endocarditis -UTI -Bone, Joint Infection -Implantable Device -Acute Abdominal Infection -Wound Infection -Meningitis -Blood Stream Catheter Infection -Unknown Cardiovascular Complaint Exam - Chest Pain Complaint/Exam Onset: Gradual Duration: 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 Denies: Diaphoresis, Vomiting, Fever, Palpitations, Cough, Hemoptysis, Back pain, Abdominal pain, Dizziness, Short of air, Calf pain, Calf swelling Related History: Reports: Similar episode History of Healthcare-Acquired Pneumonia: Reports: No AMI/ACS Risk Factors: Reports: Sedentary, Diabetes, Obesity, Hypertension TAD Risk Factors: Reports: Hypertension Pulmonary Embolism Risk Factors: Reports: None Prior Care for this Complaint: Yes (WAS STENTED ) Recent Stress Test: No Recent Echo/LV Function: No JVD Present: No Diminshed Breath Sounds: No Reproducible Chest Wall Pain: No Bilateral Pulses Present: Yes Unequal Pulses Noted: No If Risk Factors for AMI/ACS Consider: EKG 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 Infection Quality Indicator For Non-Traumatic Chest Pain/Syncope: EKG Performed Review of Systems - Review Of Systems Constitutional: Reports: No symptoms Eyes: Reports: No symptoms Ears, Nose, Mouth, Throat: Reports: No symptoms Respiratory: Reports: No symptoms Cardiac: Reports: Chest pain GI: Reports: No symptoms : Reports: No symptoms Musculoskeletal: Reports: No symptoms Skin: Reports: No symptoms Neurological: Reports: No symptoms Endocrine: Reports: No symptoms Hematologic/Lymphatic: Reports: No symptoms All Other Systems: Reviewed and Negative Past Medical History - Past Medical History Previously Healthy: Yes Endocrine: Reports: DM 2, Hypothyroid Cardiovascular: Reports: CAD, Hypertension Respiratory: Reports: None Hematological: Reports: None Gastrointestinal: Reports: Other Genitourinary: Reports: None Neuro/Psych: Reports: 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 Denies: Bipolar Disorder (on lithium...) Musculoskeletal: Reports: None Cancer: Reports: None Last Menstrual Period: N/A Other Pertinent Past Medical History: PARKINSON'S/STROKE LEFT SIDE AFFECTED - Surgical History General Surgical History: Reports: Hysterectomy, Cholecystectomy, Adenoidectomy , Other (COLON RESECTION DUE TO OBSTRUCTION) - Family History Family History: Reports: Unknown - Social History Smoking Status: Never smoker Hx Substance Use: No Alcohol Screening: None - Immunizations Tetanus Shot up to Date: Yes Physical Exam - Physical Exam Appearance: Well-appearing, No pain distress, Well-nourished Eyes: DARLING, EOMI, Conjunctiva clear ENT: Ears normal, Nose normal, Oropharynx normal Respiratory: Airway patent, Breath sounds clear, Breath sounds equal, Respirations nonlabored Cardiovascular: RRR, Pulses normal, No rub, No murmur GI/: Soft, Nontender, No masses, Bowel sounds normal, No Organomegaly Musculoskeletal: Normal strength, ROM intact, No edema, No calf tenderness Skin: Warm, Dry, Normal color Neurological: Sensation intact, Motor intact, Reflexes intact, Cranial nerves intact, Alert, Oriented Psychiatric: Affect appropriate, Mood appropriate Interpretation - Radiology Interpretation Radiology Interpretation By: Radiologist Radiology Results: No acute changes - Cassandra Developer Rate: Normal Rhythm: Sinus Ectopy: None - EKG Interpretation Rate: Normal Rhythm: Sinus Ectopy: None [place]: NL ST Segment: Other ([facility]) EKG Comparison: No significant changes Time of EKG #2: 18:23 Rate: Normal Rhythm: Sinus Ectopy: None [place]: NL ST Segment: Normal ([facility]) Re-Evaluation - Re-Evaluation Time of Re-Evaluation: 18:24 Status: Unchanged Vital Signs Stable: Yes Pain Level: 3 Appearance: NAD Lungs: Clear Skin: Warm and Dry Neuro: Alert and Oriented X3 CV: RRR Physician Notification - Case Discussed Physician Notified: EARNESTINE Time of Notification: 18:23 (TRANSFER) Physician Notified: ABUNDIO MEYER Time of Notification: 18:26 (TRANSFER ) Critical Care Note - Critical Care Note Total Time (mins): 60 Course - Course Hematology/Chemistry: 02/16/18 17:09 02/16/18 17:09 Orders, Labs, Meds: Lab Review 02/16/18 02/16/18 17:09 17:09 WBC 8.43 RBC 4.62 Hgb 12.1 Hct 38.1 MCV 82.5 MCH 26.2 L MCHC 31.8 RDW Coeff of Jasmin 16.7 H Plt Count 229 Immature Gran % (Auto) 0.2 Neut % (Auto) 55.0 Lymph % (Auto) 35.3 [place] % (Auto) 6.4 Eos % (Auto) 2.3 Baso % (Auto) 0.8 Immature Gran # (Auto) 0.0 Neut # (Auto) 4.6 Lymph # (Auto) 3.0 [place] # (Auto) 0.5 Eos # (Auto) 0.2 Baso # (Auto) 0.1 Sodium 144 Potassium 4.1 Chloride 107 Carbon Dioxide 27 Anion Gap 14.1 BUN 14 Creatinine 1.17 Estimated GFR (MDRD) 45.00 BUN/Creatinine Ratio 11.96 Glucose 130 H Calcium 10.3 H Total Bilirubin 0.4 AST 17 ALT 15 Alkaline Phosphatase 90 Total Creatine Kinase 105 Troponin I < 0.0100 Total Protein 7.4 Albumin 4.0 Globulin 3.4 Albumin/Globulin Ratio 1.18 Orders Category Date Time Status EKG-(ED ONLY) Stat CARDIO 02/16/18 17:17 Completed EKG-(ED ONLY) Stat CARDIO 02/16/18 18:09 Ordered NPO REMINDER: IMAGING ONCE CARE 02/16/18 17:17 Completed ED IV/MEDIPORT/POWERPORT .ONCE EMERGENCY 02/16/18 17:16 Active CBC W/ AUTO DIFF Stat LAB 02/16/18 17:09 Completed COMPREHENSIVE METABOLIC PANEL Stat LAB 02/16/18 17:09 Completed CREATINE KINASE Stat LAB 02/16/18 17:09 Completed PARTIAL THROMBOPLASTIN TIME Stat LAB 02/16/18 17:09 Received PT WITH INR Stat LAB 02/16/18 17:09 Received TROPONIN I Stat LAB 02/16/18 17:09 Completed 0.9 % Sodium Chloride [Saline Flush] MEDS 02/16/18 17:16 Active 1 syr IVF PRN PRN Aspirin [Aspirin Chewable] MEDS 02/16/18 18:10 Discontinued 324 mg PO ONCE STA Morphine Sulfate [Morphine 2 mg/ml Syringe] MEDS 02/16/18 18:20 Stat 2 mg IVP ONCE STA Ondansetron HCl/Pf [Zofran 4 mg/2 ml] MEDS 02/16/18 17:41 Discontinued 4 mg IVP ONCE STA Ondansetron HCl/Pf [Zofran 4 mg/2 ml] MEDS 02/16/18 18:20 Stat 4 mg IVP ONCE STA CHEST, 1V AP ONLY Stat RADS 02/16/18 18:09 Ordered Medications Generic Name Dose Route Start Last Admin Trade Name Freq PRN Reason Stop Dose Admin Sodium Chloride 1 syr 02/16/18 17:16 02/16/18 18:06 Saline Flush IVF 1 syr PRN PRN Administration To flush IV Discontinued Medications Generic Name Dose Route Start Last Admin Trade Name Freq PRN Reason Stop Dose Admin Aspirin 324 mg 02/16/18 18:10 Aspirin Chewable PO 02/16/18 18:11 ONCE STA Ondansetron HCl 4 mg 02/16/18 17:41 02/16/18 18:06 Zofran 4 Mg/2 Ml IVP 02/16/18 17:42 4 mg ONCE STA Administration Vital Signs: Temp Pulse Resp BP Pulse Ox 02/16/18 17:11 98.2 F 74 18 150/82 H 98 SALVADOR Risk Score SALVADOR Risk Score: Risk Score Odds of by 30D 0 0.1 (0.1-0.2) 1 0.3 (0.2-0.3) 2 0.4 (0.3-0.5) 3 0.7 (0.6-0.9) 4 1.2 (1.0-1.5) 5 2.2 (1.9-2.6) 6 3.0 (2.5-3.6) 7 4.8 (3.8-6.1) Departure - Departure Time of Disposition: 18:27 Disposition: TSF SHORT-TRM HOSP Discharge Problem: Unstable angina Instructions: Angina (DC), Chest Pain (ED), Chest Pain (DC) Condition: Good Pt referred to PMD for follow-up: Yes IPMP verified?: No Additional Instructions: Please call your Family Physician as soon as possible to schedule a follow-up appointment. Allergies/Adverse Reactions: Allergies No Known Allergies Allergy (Verified 02/16/18 17:13) Home Medications: Ambulatory Orders Acetaminophen [Pain Reliever] 325 mg PO Q4-6H PRN 11/05/15 Levothyroxine Sodium [Synthroid] 50 mcg PO QDAC 11/05/15 Montelukast Sodium [Singulair] 10 mg PO DAILY 05/27/16 Amlodipine Besylate [Norvasc] 5 mg PO DAILY 07/24/17 Azelastine HCl [Astelin 0.1%] 1 spray NS DIRECTED 07/24/17 Colestipol HCl [Colestid] 1 gm PO TID 07/24/17 Fluticasone Propionate [Flonase] 1 spray APRIL DIRECTED 07/24/17 Melatonin 3 mg PO BEDTIME 07/24/17 Temazepam [Restoril] 30 mg PO BEDTIME 07/24/17 Multivitamin [Daily Multiple Vitamin] 1 each PO DAILY 07/25/17 Losartan Potassium [Cozaar] 50 mg PO DAILY 02/16/18 Metoprolol Succinate 25 mg PO DAILY 02/16/18 Disposition Discussed With: Patient, Family
[2018-02-16] MEDS: MORPHINE 2 MG/ML SYRINGE IVP STA (18:44)
[2018-02-16] MEDS: ASPIRIN CHEWABLE PO STA (18:44)
--- NOTE | 2018-02-16 18:56 | DI ---
EXAM: Single view chest COMPARISON: Chest Xray from 09/26/2017 HISTORY: Chest pain FINDINGS: Lung volumes are low. There is continued relative elevation of the left hemidiaphragm. Rickie gs are clear with no lobar consolidation, failure, large effusion or significant atelectasis. Cardia c and mediastinal silhouettes show no acute abnormality. No acute soft tissue or osseous abnormaliti es. There has been prior cholecystectomy. IMPRESSION: No active disease.
== END 2018-02-16 18:53 | disposition short-term general hospital (02) ==
LOC: ED 17:09
DX: I20.0 Unstable angina (principal); I11.9 Hypertensive heart disease without heart failure; G20 Parkinson's disease; E11.9 Type 2 diabetes mellitus without complications; R11.0 Nausea; E03.9 Hypothyroidism, unspecified; E66.9 Obesity, unspecified; Z95.1 Presence of aortocoronary bypass graft; Z86.73 Personal history of transient ischemic attack (TIA), and cerebral infarction without residual deficits; Z79.899 Other long term (current) drug therapy
CPT/HCPCS: 36415; 80053; 82550; 84484; 85025; 85610; 85730; 93005; 93010; 99285

== ENCOUNTER 2018-03-19 11:51 | Emergency (ER) | payer OTHER ==
[2018-03-19 11:59] VITALS: BP 129/85; TEMP 98; BMI 28.6
--- NOTE | 2018-03-19 12:20 | ED.PDOC ---
General ED Provider: Dr. JULIO DOUGLASS Chief Complaint: Rash Stated Complaint: itchy eyes Time Seen by Physician: 12:00 (ilia was present at all times ) Mode of Arrival: Walk-In Information Source: Patient Exam Limitations: No limitations Primary Care Provider: RADHA MENA Nursing and Triage Documentation Reviewed and Agree: Yes Does patient meet sepsis criteria?: No System Inflammatory Response Syndrome: Not Applicable Sepsis Protocol: For patient's 13 years and over: Temp is 96.8 and below OR 101 and greater Pulse >90 BPM Resp >20/minute Acutely Altered Mental Status Are patient's symptoms suggestive of a new infection, such as: -Pneumonia -Skin, Soft Tissue -Endocarditis -UTI -Bone, Joint Infection -Implantable Device -Acute Abdominal Infection -Wound Infection -Meningitis -Blood Stream Catheter Infection -Unknown EENT Complaint Exam - Eye Complaint/Exam Symptoms Are: Still present Timing: Intermittent Initial Severity: Moderate Current Severity: Moderate Location: Bilateral Character: Reports: Dull Aggravating: Reports: None Alleviating: Reports: None Associated Signs and Symptoms: Denies: Photophobia, Clear drainage, Purulent drainage, Vision impairment, Fever, Swelling Eye Surgical History: Reports: None Penetrating Injury Risk Factors: None Globe Rupture Risk Factors: None Acute Glaucoma Risk Factors: None Optic Artery Occlusion Risk Factors: None Visual Field: Normal Extraocular Movement: Normal Orbit Findings: Normal Globe Findings: Intact Lid Findings: Normal Differential Diagnoses: Other (allergy seasonal) Review of Systems - Review Of Systems Constitutional: Reports: No symptoms Eyes: Reports: Other (itching of both eyes ) Ears, Nose, Mouth, Throat: Reports: No symptoms Respiratory: Reports: No symptoms Cardiac: Reports: No symptoms GI: Reports: No symptoms : Reports: No symptoms Musculoskeletal: Reports: No symptoms Skin: Reports: No symptoms Neurological: Reports: No symptoms Endocrine: Reports: No symptoms Hematologic/Lymphatic: Reports: No symptoms All Other Systems: Reviewed and Negative Past Medical History - Past Medical History Previously Healthy: Yes Endocrine: Reports: DM 2, Hypothyroid Cardiovascular: Reports: CAD, Hypertension Respiratory: Reports: None Hematological: Reports: None Gastrointestinal: Reports: Other Genitourinary: Reports: None Neuro/Psych: Reports: 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 Denies: Bipolar Disorder (on lithium...) Musculoskeletal: Reports: None Cancer: Reports: None Last Menstrual Period: unknown Other Pertinent Past Medical History: PARKINSON'S/STROKE LEFT SIDE AFFECTED - Surgical History General Surgical History: Reports: Hysterectomy, Cholecystectomy, Adenoidectomy , Other (COLON RESECTION DUE TO OBSTRUCTION) - Family History Family History: Reports: Unknown - Social History Smoking Status: Never smoker Hx Substance Use: No Alcohol Screening: None Physical Exam - Physical Exam Appearance: Well-appearing, No pain distress, Well-nourished Eyes: DARLING, EOMI, Conjunctiva clear ENT: Ears normal, Nose normal, Oropharynx normal Respiratory: Airway patent, Breath sounds clear, Breath sounds equal, Respirations nonlabored Cardiovascular: RRR, Pulses normal, No rub, No murmur GI/: Soft, Nontender, No masses, Bowel sounds normal, No Organomegaly Musculoskeletal: Normal strength, ROM intact, No edema, No calf tenderness Skin: Warm, Dry, Normal color Neurological: Sensation intact, Motor intact, Reflexes intact, Cranial nerves intact, Alert, Oriented Psychiatric: Affect appropriate, Mood appropriate Physician Notification - Case Discussed Physician Notified: doctor brush Time of Notification: 12:21 (will see pt at 1 pm) Critical Care Note - Critical Care Note Total Time (mins): 0 Course - Course Vital Signs: Temp Pulse Resp BP Pulse Ox 03/19/18 11:53 98.0 F 80 20 129/85 97 Departure - Departure Time of Disposition: 12:21 Disposition: HOME SELF-CARE Discharge Problem: Itchy eyes Instructions: Allergic Rhinitis (ED) Condition: Good Pt referred to PMD for follow-up: Yes IPMP verified?: No Additional Instructions: Please call your Family Physician as soon as possible to schedule a follow-up appointment.the eye doctor is waiting for youat 1 pm today Allergies/Adverse Reactions: Allergies No Known Allergies Allergy (Verified 02/16/18 17:13) Home Medications: Ambulatory Orders Acetaminophen [Pain Reliever] 325 mg PO Q4-6H PRN 11/05/15 Levothyroxine Sodium [Synthroid] 50 mcg PO QDAC 11/05/15 Montelukast Sodium [Singulair] 10 mg PO DAILY 05/27/16 Amlodipine Besylate [Norvasc] 5 mg PO DAILY 07/24/17 Azelastine HCl [Astelin 0.1%] 1 spray NS DIRECTED 07/24/17 Colestipol HCl [Colestid] 1 gm PO TID 07/24/17 Fluticasone Propionate [Flonase] 1 spray APRIL DIRECTED 07/24/17 Melatonin 3 mg PO BEDTIME 07/24/17 Temazepam [Restoril] 30 mg PO BEDTIME 07/24/17 Multivitamin [Daily Multiple Vitamin] 1 each PO DAILY 07/25/17 Losartan Potassium [Cozaar] 50 mg PO DAILY 02/16/18 Metoprolol Succinate 25 mg PO DAILY 02/16/18
== END 2018-03-19 12:44 | disposition home or self-care (01) ==
LOC: ED 11:51
DX: L29.8 Other pruritus (principal)
CPT/HCPCS: 99282

== ENCOUNTER 2018-06-29 08:27 | Outpatient (CLI) ==
[2018-06-29 08:42] VITALS: TEMP 97.2
[2018-06-29] MEDS ORDERED: PROLIA SUBCUT STA (08:42)
== END 2018-06-29 08:50 | disposition home or self-care (01) ==
LOC: OPMED 08:27
PROVIDERS: ATTEND Family Medicine
DX: M81.0 Age-related osteoporosis without current pathological fracture (principal)
CPT/HCPCS: 96372

== ENCOUNTER 2019-01-29 13:02 | Outpatient (RCR) | payer OTHER ==
[2019-02-20 14:15] VITALS: BP 108/56
== END 2019-02-23 23:59 ==
LOC: PUL.REHAB 13:02
PROVIDERS: ATTEND Internal Medicine Pulmonary Disease
DX: R05 Cough (principal); J98.4 Other disorders of lung

== ENCOUNTER 2019-02-03 18:54 | Outpatient (CLI) | payer OTHER | END 2019-02-03 19:14 | disposition short-term general hospital (02) | LOC: AMBL 18:54 | PROVIDERS: ATTEND Family Medicine | DX: R07.9 Chest pain, unspecified (principal); R10.13 Epigastric pain; I10 Essential (primary) hypertension; R50.9 Fever, unspecified; R11.2 Nausea with vomiting, unspecified; Z86.73 Personal history of transient ischemic attack (TIA), and cerebral infarction without residual deficits ==

== ENCOUNTER 2025-02-10 22:03 | Inpatient (IN) ==
[2025-02-10] MEDS: SODIUM CHLORIDE 1,000 ML IV ONE (22:40)
[2025-02-10] MEDS: DUONEB NEB STA (22:50)
[2025-02-10 23:47] LABS: GLUCOSE, URINE (UA) Negative (NEGATIVE); LEUKOCYTE ESTERASE ,URINE Negative (NEGATIVE); URINE, BLOOD Negative (NEGATIVE)
[2025-02-11 00:12] LABS: MOLECULAR FLU A NEGATIVE BY NAAT (NEGATIVE); MOLECULAR FLU B NEGATIVE BY NAAT (NEGATIVE); SARS COV-2 RNA RAPID NAAT NEGATIVE (NEGATIVE)
[2025-02-11 00:13] LABS: IMMATURE GRANULOCYTE # (AUTO) 0.1 (0.0-1.0); IMMATURE GRANULOCYTE % (AUTO) 0.4 % (0.0-5.0); RDW COEFFICIENT OF VARIATION 14.4 % (11.6-14.8)
[2025-02-11] MEDS: ZOFRAN SDV IVP STA (00:13)
[2025-02-11] MEDS: MORPHINE 2 MG/ML SYRINGE IVP ONE (00:13)
[2025-02-11 00:30] LABS: CREATININE 1.08 mg/dL (0.60-1.30)
--- NOTE | 2025-02-11 00:32 | CT ---
EXAM: CT BRAIN WITHOUT CONTRAST HISTORY: Fall with head injury TECHNIQUE: CT of the brain without intravenous contrast. FINDINGS: There is no acute hemorrhage midline shift or mass effect. No hydrocephalus or abnormal extra-axial fluid collection. Generalized involutional atrophy, moderate. Chronic microvascular change of the white matter tracts, moderate. The bony cranium appears normal. The visualized paranasal si nuses are clear. Soft tissues without significant abnormality. IMPRESSION: 1. No acute intracranial abnormality. Chronic changes as described. All CT scans are performed using dose optimization techniques as appropriate to the performed exam and include at least one of the following: Automated exposure control, adjustment of the mA and/or kV according to size, and the use of iterative reconstruction technique.
--- NOTE | 2025-02-11 00:36 | CT ---
EXAM: CT OF THE LUMBAR SPINE WITHOUT CONTRAST TECHNIQUE: Noncontrast CT of the lumbar spine performed with multiplanar reformats. HISTORY: Lower back pain, remote fall. COMPARISON: CT lumbar spine 01/09/2025. FINDINGS: No acute fracture. Grade 1 degenerative spondylolisthesis at L2-3 and L4-5. Advanced multilevel degenerative spondylosis. Mild levoconvex lumbar scoliosis. There is high-grade spinal canal stenosis at L4-5 and multilevel high-grade osseous foraminal stenosis. Scattered atherosclerotic calcifications. Post cholecystectomy. Calcified granulomas in the liver and spleen. IMPRESSION: No acute abnormality of the lumbar spine. Advanced degenerative changes with high-grade spinal canal stenosis at L4-5. Consider follow up MRI for further evaluation. All CT scans are performed using dose optimization techniques as appropriate to the performed exam and include at least one of the following: Automated exposure control, adjustment of the mA and/or kV according to size, and the use of iterative reconstruction technique.
--- NOTE | 2025-02-11 00:41 | CT ---
EXAM: CT CHEST WITHOUT CONTRAST HISTORY: Cough TECHNIQUE: [address] chest without contrast FINDINGS: Movement artifact is inhibiting. Groundglass and patchy consolidative change of the bilateral lower lobes. Atherosclerotic calcification of the aorta and coronary arteries. No mediastinal lymphadenopathy. Right approach sclerosis right chest wall implantable device. Right shoulder arthroplasty. No acute chest wall abnormality. No acute findings of the upper abdomen. IMPRESSION: 1. Inhibited study 2. Right greater than left patchy lung base groundglass and consolidated changes suspect for pneumonia All CT scans are performed using dose optimization techniques as appropriate to the performed exam and include at least one of the following: Automated exposure control, adjustment of the mA and/or kV according to size, and the use of iterative reconstruction technique.
[2025-02-11 00:42] LABS: INR 0.99 SI (0.0-3.9)
[2025-02-11] MEDS ORDERED: ZOSYN 3.375 GM 3.375 GM in SODIUM CHLORIDE 100ML 100 ML IV ONE (01:41)
[2025-02-11] MEDS: VANCOMYCIN PO STA (02:11)
--- NOTE | 2025-02-11 06:31 | ED.PDOC ---
General [facility] ED Provider: Dr. FELICITA CHAVARRIA DO Chief Complaint: Back Pain Stated Complaint: 84-year-old female presents to the ER from home. Her power of bankruptcy attorney which is her credit reference clerk, apparently went to visit and noticed that she seemed somewhat less active and that her oxygen levels in the mid upper 80s. This is not normal for this patient and she is not normally oxygen dependent. The patient states that she thinks that she had a fever yesterday but denies any headache, chest pain, shortness of breath, abdominal pain, dysuria or hematuria. She does state that she has a history of C. difficile and had an appointment with infectious disease as an outpatient. Again, this is a outpatient scheduled appointment and the patient is not currently on any antibiotics. History reviewed in chart otherwise. 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 She also states that she had a fall approximately 1 to 2 weeks ago where she struck her forehead. Time Seen by Provider: 02/10/25 22:08 Information Source: Patient Primary Care Provider: LUKAS BOSS Nursing and Triage Documentation Reviewed and Agree: Yes Opioid Naive vs. Tolerant What is Opioid Naive?: *Opioid Naive implies the patient is not already taking opioids or not chronically receiving opioids on a daily basis. *PRN dosing is not "usually" associated with tolerance. *Patients are at higher risk of over-sedation and aspiration. What is Opioid Tolerant?: *Opioid Tolerance implies less than the expected response to an opioid. *Acquired tolerance is defined by the patient taking 60mg of oral morphine daily (or equianalgesic dose of another opioid) for 1 week or more. *Often associated with chronic pain. *May take more than usual dose to achieve desired pain control. Review of Systems Review Of Systems Constitutional: Reports No symptoms All Other Systems: Reviewed and Negative [facility] Medical History Transient ischemic attack G45.9 - Transient cerebral ischemic attack, unspecified (ICD-10) Left navicular fracture of foot S92.252A - Displaced fracture of navicular [scaphoid] of left foot, initial encounter for closed fracture (ICD-10) History of cardiac pacemaker Z95.0 - Presence of cardiac pacemaker (ICD-10) History of hypertension Z86.79 - Personal history of other diseases of the circulatory system (ICD- 10) Chronic GERD K21.9 - Gastro-esophageal reflux disease without esophagitis (ICD-10) Thyroid disease E07.9 - Disorder of thyroid, unspecified (ICD-10) Stroke I63.9 - Cerebral infarction, unspecified (ICD-10) History of sinus problem Z87.09 - Personal history of other diseases of the respiratory system (ICD- 10) Allergies T78.40XA - Allergy, unspecified, initial encounter (ICD-10) Family History Mother Cancer of gastrointestinal tract Heart attack SISTER Lung cancer DAUGHTER Heart attack Cancer Diabetes Social History Smoking and tobacco status: Never smoker Alcohol intake: never Substance use type: does not use Esther/denominational: TAOIST Household members: none Housing: apartment Marital status: W / Lives independently: Yes Number of children: 2 Number of grandchildren: 5 Highest education level completed: Master's degree 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 Pets and animals: Yes (dog) Leisure activites: other History of recent travel: No Do you think of yourself as: straight/heterosexual Current gender identity: female Seatbelt use: always Water heater temperature set < 120 degrees: Yes Working smoke detector in home: Yes Fire extinguisher in home: Yes Carbon monoxide detector in home: Yes Firearms in home: No Surgical History H/O: hysterectomy Z90.710 - Acquired absence of both cervix and uterus (ICD-10) H/O tubal ligation Z98.51 - Tubal ligation status (ICD-10) History of cholecystectomy Z98.89 - Other specified postprocedural states (ICD-10) History of appendectomy Z98.89 - Other specified postprocedural states (ICD-10) History of tonsillectomy Z98.89 - Other specified postprocedural states (ICD-10) History of sinus surgery Z98.890 - Other specified postprocedural states (ICD-10) Female Reproductive History Menstrual Hx Hysterectomy: Yes Hx Tubal Ligation: No Physical Exam Physical Exam Appearance: Reports Well-appearing, No pain distress and Well-nourished Ill-appearing: Mild Eyes: Reports DARLING and EOMI ENT: Reports Nose normal and Oropharynx normal Neck: Supple Respiratory: Reports Airway patent, Breath sounds diminished, Respirations nonlabored and Crackles; Denies Wheezes Cardiovascular: Reports RRR, Pulses normal and Other (Mild hypotension. Mildly tachycardic 109) GI/: Reports Soft and Nontender Musculoskeletal: Reports Normal strength and ROM intact Skin: Reports Warm, Dry and Normal color Neurological: Reports Sensation intact, Motor intact, Alert and Oriented Psychiatric: Reports Affect appropriate and Mood appropriate Interpretation EKG Interpretation EKG Interpretation By: ED Physician Time of EKG #1: 23:32 Rate: Tachy (109) Rhythm: Sinus Ectopy: None Zaleski: NL ST Segment: Normal Interpretation: Nonischemic Radiology Interpretation Radiology Interpretation By: Radiologist Radiology Results: Negative Exam Interpreted: CT Scan (Head and lumbar spine) Radiology Interpretation By: Radiologist Radiology Results: Positive (Patchy infiltrate/honeycomb) Exam Interpreted: CT Scan (CT chest without contrast) Re-Evaluation Re-Evaluation Additional Comments: 84-year-old female presents to the ER with hypoxia and some shortness of breath. She is afebrile but states that she had a fever in the last 24 hours. She does have a mild hypoxia and CT scan obtained when a CT was obtained of her head due to the evidence of a fall and of her lumbar spine therefore a CT was continued to evaluate the chest and lieu of a plain film. This did show patchy infiltrate without obvious consolidation that is concerning for pneumonia. She has a minimal white count no lactic acidosis however she does have a right shift on her differential. Given the diminished breath sounds, hypoxia, mild hypotension on presentation, a septic workup was pursued but the 30 cc/kg bolus was not given purposefully due to the patient's age and hypoxia and concern for possible fluid overload. She has bonded well to a single liter of IV fluids and blood pressure improved. 2 L nasal cannula resulted in resolution of her hypoxia. The patient refused the ABG due to discomfort when respiratory therapy attempted to obtain this. EKG was obtained which is nonischemic. Troponin and BNP grossly unremarkable. Low suspicion for other acute cardiopulmonary process or heart failure. She had no diarrhea in the emergency department and was monitored in the ER overnight by my decision to continue to monitor her before requesting admission as the patient was able to fall asleep in the emergency department and remained stable therefore I chose to observe her and lieu of keeping her up through the night and moving her throughout the hospital interrupting any potential sleep. She is given a dose of oral vancomycin due to her history of C. difficile although again she had no episodes of diarrhea in the emergency department but this was done in addition to a IV dose of Zosyn to cover for her pneumonia. Blood cultures were obtained as well and accordance with septic workup. Patient remained stable and IV access was lost as the IV apparently had back itself out through the night and due to the patient being stuck multiple times in the emergency department and her refusal of the ABG, we are requesting another shift or department to aid in establishing this prior to sending her to the floor since we tried several times and the patient's refusal of the ABG. I discussed case with the hospitalist service who was agreeable and we appreciate their help in caring for this patient. 0640: Patient remained stable. Due to her weak cough, I have repeated the breathing treatment in addition to Mucomyst to try to help with pulmonary toilet. Have also ordered repeat chest x-ray for reassessment. Patient has been accepted for admission and awaiting room assignment Physician Progress Note Physician Progress Note: All EKGs and plain film imaging independently reviewed and interpreted by me unless stated otherwise. CTs interpreted by radiology unless otherwise stated. All pediatric patients are accompanied by parent or legal guardian as primary historian and/or validate patient report unless otherwise stated. Course Course 02/11/25 00:05 02/11/25 00:05 Orders, Labs, Meds: Lab Review 02/10/25 02/10/25 02/11/25 22:35 23:30 00:05 WBC 13.25 H RBC 4.19 L Hgb 11.9 L Hct 39.7 MCV 94.7 MCH 28.4 MCHC 30.0 L RDW Coeff of Jasmin 14.4 Plt Count 165 Immature Gran % (Auto) 0.4 Neut % (Auto) 89.4 H Lymph % (Auto) 4.9 L [place] % (Auto) 4.5 Eos % (Auto) 0.5 Baso % (Auto) 0.3 Neut # (Auto) 11.9 H Lymph # (Auto) 0.7 [place] # (Auto) 0.6 Eos # (Auto) 0.1 Baso # (Auto) 0.0 Immature Gran # (Auto) 0.1 PT 10.3 INR 0.99 APTT 24.1 Sodium 139.5 Potassium 4.06 Chloride 101.0 Carbon Dioxide 29.9 Anion Gap 12.66 BUN 20.4 H Creatinine 1.08 Estimated GFR (MDRD) 49.00 BUN/Creatinine Ratio 18.88 Glucose 159.5 H Lactic Acid 1.76 Calcium 9.14 Magnesium 1.66 Total Bilirubin 0.66 AST 38.0 H ALT 26.2 Alkaline Phosphatase 65.4 Troponin I 0.017 NT-Pro-B Natriuret Pep 87 Total Protein 6.96 Albumin 4.17 Globulin 2.79 Albumin/Globulin Ratio 1.49 Urine Color Yellow Urine Clarity Clear Urine pH 5.5 Ur Specific Bailey 1.015 Urine Protein Negative Urine Glucose (UA) Negative Urine Ketones Negative Urine Blood Negative Urine Nitrite Negative Urine Bilirubin Negative Urine Urobilinogen 0.2 Ur Leukocyte Esterase Negative Influ A Molecular Assay Negative by naat Influ B Molecular Assay Negative by naat SARS CoV-2 RNA Rapid CLARE Negative Orders Category Date Time Status ADMIT OBSERVATION [PLACE PATIENT OBSERVATION] .TO ADMISSION 02/11/25 06:23 Active MEDSURG (MONITORED BED) NEBULIZER TREATMENT Stat CARDIO 02/10/25 22:30 Completed NEBULIZER TREATMENT Stat CARDIO 02/11/25 06:27 Ordered TELEMETRY MONITORING TELE CARE 02/11/25 06:23 Active ED CATHETER INSERTION AND CARE .ONCE EMERGENCY 02/10/25 22:30 Active IV [ED IV/MEDIPORT/POWERPORT] .ONCE EMERGENCY 02/10/25 22:30 Active ABG COOX Stat LAB 02/10/25 22:30 Stop Req BLOOD CULTURE (ED ONLY) Stat LAB 02/10/25 00:00 Received CBC W/ AUTO DIFF Stat LAB 02/10/25 00:05 Completed CMP [COMPREHENSIVE METABOLIC PANEL] Stat LAB 02/10/25 00:05 Completed COVID [SARS COV-2 RNA RAPID CLARE] Stat LAB 02/10/25 22:35 Completed FLU A & B MOLECULAR [FLU A/B MOLECULAR] Stat LAB 02/10/25 22:35 Completed LACTIC ACID Stat LAB 02/10/25 00:05 Completed MAGNESIUM Stat LAB 02/10/25 00:05 Completed NT-PROBNP(ED) Stat LAB 02/10/25 00:05 Completed PT WITH INR Stat LAB 02/10/25 00:05 Completed PTT [PARTIAL THROMBOPLASTIN TIME] Stat LAB 02/10/25 00:05 Completed TROPONIN I Stat LAB 02/10/25 00:05 Completed URINALYSIS C & S IF INDICATED Stat LAB 02/10/25 23:30 Completed 0.9 % Sodium Chloride [Saline Flush] Meds 02/10/25 22:30 Active 1 syr IVF PRN PRN Acetylcysteine [Mucomyst 20% Neb] Meds 02/11/25 06:26 Discontinued 200 mg NEB ONCE STA Ipratropium/Albuterol Neb [Duoneb] Meds 02/10/25 22:30 Discontinued 3 ml NEB ONCE STA Ipratropium/Albuterol Neb [Duoneb] Meds 02/11/25 06:26 Discontinued 3 ml NEB ONCE STA Morphine Sulfate [Morphine 2 mg/ml Syringe] Meds 02/11/25 00:03 Discontinued 2 mg IVP ONCE ONE Ondansetron HCl/Pf [Zofran Sdv] Meds 02/11/25 00:03 Discontinued 4 mg IVP ONCE STA Sodium Chloride 0.9% [Sodium Chloride] 1,000 ml Meds 02/10/25 22:36 Discontinued IV BOLUS Vancomycin Meds 02/11/25 01:47 Discontinued 250 mg PO ONCE STA CHEST, 1V AP ONLY Stat RADS 02/11/25 06:[address] CHEST W/O CONTRAST Stat RADS 02/11/25 00:[address] HEAD W/O CONTRAST Stat RADS 02/10/25 22:[address] LUMBAR SPINE W/O CONTRAST Stat RADS 02/11/25 00:01 Completed Medications Generic Name Dose Route Start Last Admin Trade Name Freq PRN Reason Stop Dose Admin Sodium Chloride 1 syr 02/10/25 22:30 0.9% Sodium Chloride 10 Ml Disp.Syrin IVF PRN PRN To flush IV Discontinued Medications Generic Name Dose Route Start Last Admin Trade Name Freq PRN Reason Stop Dose Admin Acetylcysteine 200 mg 02/11/25 06:26 Acetylcysteine 200 Mg/Ml 4 Ml Neb.Vial NEB 02/11/25 06:27 ONCE STA Albuterol/Ipratropium 3 ml 02/10/25 22:30 02/10/25 22:50 Ipratropium/Albuterol Vial.Neb NEB 02/10/25 22:31 3 ml ONCE STA Administration Albuterol/Ipratropium 3 ml 02/11/25 06:26 Ipratropium/Albuterol Vial.[facility] 02/11/25 06:27 ONCE STA Sodium Chloride 1,000 mls @ 1,000 mls/hr 02/10/25 22:36 02/10/25 23:50 Sodium Chloride IV 02/10/25 23:35 Infused BOLUS ONE Infusion Morphine Sulfate 2 mg 02/11/25 00:03 02/11/25 00:13 Morphine Sulfate 2 Mg/Ml Syringe IVP 02/11/25 00:04 2 mg ONCE ONE Administration Ondansetron HCl 4 mg 02/11/25 00:03 02/11/25 00:13 Ondansetron Hcl/Pf 4 Mg/2 Ml Sdv IVP 02/11/25 00:04 4 mg ONCE STA Administration Vancomycin HCl 250 mg 02/11/25 01:47 02/11/25 02:11 Vancomycin 125 Mg Capsule PO 02/11/25 01:48 250 mg ONCE STA Administration Vital Signs: Temp Pulse Resp BP Pulse Ox O2 Flow Rate 02/11/25 05:44 98 F 74 18 124/64 95 2 02/10/25 22:07 97 F L 87 20 99/55 L 93 L Discharge Plan Discharge Patient Disposition: PLACED OBSERVATION Discharge Problem: Pneumonia, Hypoxia Did you review [place] VISITOR USE ASSISTANT for ALL controlled substances?: Not Applicable ED Provider: FELICITA CHAVARRIA Condition: Stable
[2025-02-11] MEDS: DUONEB NEB STA (06:34)
--- NOTE | 2025-02-11 07:21 | DI ---
EXAM: SINGLE VIEW CHEST HISTORY: Follow up pneumonia. COMPARISON: 12/14/2023 FINDINGS: Cardiomediastinal silhouette is unremarkable. Lung volumes are diminished with dependent ground-glass. Lungs are otherwise aerated. There is no pneumothorax. The osseous structures demonstrate degenerative change with right shoulder arthroplasty. IMPRESSION: Mild dependent groundglass may represent atelectasis versus infection.
[2025-02-11 08:15] VITALS: BMI 29.7
[2025-02-11] MEDS: MUCOMYST 20% NEB NEB STA (09:50)
--- NOTE | 2025-02-11 11:27 | PCM ---
Date of Service Date Seen by Provider: 02/11/25 Time Seen by Provider: 11:28 Admit Day/Time Admission Date: 02/11/25 Admission Time: 06:00 Reason for Admission Chief Complaint: PNEUMONIA Hospital Provider Hospital Provider: RAYO COE PA-C, [facility] Primary Care Physician Primary Care Physician: LUKAS BOSS History of Present Illness History of Present Illness: 84 year old female with a PMH of hypothyroidism, migraines, GERD, multiple falls in the past, depression, and others presented to the ER last night with complaints of shortness of breath and back pain. The patient reported she had a fall a few days ago. She states she was recently at [facility] (review of notes show she presented on 02/06 and 02/07 and was worked up for fever and recurrent diarrhea, but workup was negative for colitis and she was discharged home with carafate Rx). In our ER she was found to have an oxygen saturation of 88% and was placed on 2L and refused an ABG. She was mildly tachycardic and her labs were unremarkable except for a WBC of 13K and a CT scan showing bilateral consolidations. She was given a duoneb, acetylcysteine and a bolus of 1L fluids. Due to her recurrent history of diarrhea and an appointment with ID supposed to have been today she was given a dose of oral vancomycin and admitted for observation. She reports she is feeling a bit better at bedside and she reports she has been coughing up green sputum beginning yesterday. Blood cultures pending. Case Discussed With Case Discussed With: Patient's case was discussed with the ER Physicians, Dr. Nava. [facility] Medical History Transient ischemic attack G45.9 - Transient cerebral ischemic attack, unspecified (ICD-10) Left navicular fracture of foot S92.252A - Displaced fracture of navicular [scaphoid] of left foot, initial encounter for closed fracture (ICD-10) History of cardiac pacemaker Z95.0 - Presence of cardiac pacemaker (ICD-10) History of hypertension Z86.79 - Personal history of other diseases of the circulatory system (ICD- 10) Chronic GERD K21.9 - Gastro-esophageal reflux disease without esophagitis (ICD-10) Thyroid disease E07.9 - Disorder of thyroid, unspecified (ICD-10) Stroke I63.9 - Cerebral infarction, unspecified (ICD-10) History of sinus problem Z87.09 - Personal history of other diseases of the respiratory system (ICD- 10) Allergies T78.40XA - Allergy, unspecified, initial encounter (ICD-10) Surgical History H/O: hysterectomy Z90.710 - Acquired absence of both cervix and uterus (ICD-10) H/O tubal ligation Z98.51 - Tubal ligation status (ICD-10) History of cholecystectomy Z98.89 - Other specified postprocedural states (ICD-10) History of appendectomy Z98.89 - Other specified postprocedural states (ICD-10) History of tonsillectomy Z98.89 - Other specified postprocedural states (ICD-10) History of sinus surgery Z98.890 - Other specified postprocedural states (ICD-10) Family History Mother Cancer of gastrointestinal tract Heart attack SISTER Lung cancer DAUGHTER Heart attack Cancer Diabetes Social History Smoking and tobacco status: Never smoker Alcohol intake: never Substance use type: does not use Esther/anabaptism: TAOIST Household members: none Housing: apartment Marital status: W / Lives independently: Yes Number of children: 2 Number of grandchildren: 5 Highest education level completed: Master's degree 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 Pets and animals: Yes (dog) Leisure activites: other History of recent travel: No Do you think of yourself as: straight/heterosexual Current gender identity: female Seatbelt use: always Water heater temperature set < 120 degrees: Yes Working smoke detector in home: Yes Fire extinguisher in home: Yes Carbon monoxide detector in home: Yes Firearms in home: No Allergies Allergies Allergy/AdvReac Type Severity Reaction Status Date / Time fentanyl AdvReac confusion Verified 02/11/25 05:51 metoclopramide (From Reglan) AdvReac mental Verified 02/11/25 05:51 status change morphine AdvReac Nausea Verified 02/11/25 05:51 Current Medications Home Medications Acetaminophen (Acetaminophen 325 Mg Tablet) 325 mg PO Q6H PRN PRN Reason: Pain Atorvastatin Calcium (Atorvastatin Calcium 20 Mg Tablet) 80 mg PO QPM JERI Azithromycin (Azithromycin 250 Mg Tablet) 500 mg PO DAILY JERI Stop: 02/13/25 11:59 Budesonide/Formoterol Fumarate (Budesonide/Formoterol Fumarate 160/4.5 Mcg Inhaler) 2 puff IH DAILY JERI Bumetanide (Bumetanide 1 Mg Tablet) 1 mg PO DAILY JERI Enoxaparin Sodium (Enoxaparin Sodium 30 Mg/0.3 Ml Syr) 30 mg SUBCUT DAILY JERI Famotidine (Famotidine 20 Mg Tablet) 20 mg PO 2XD [facility] Ferrous Sulfate (Ferrous Sulfate 324 Mg Tablet.Dr) 324 mg PO DAILY [facility] CEFTRIAXONE/D5W 1 GM PREMIX (Rocephin 1 Gm/50 Ml D5w) 1 gm in 50 mls @ 100 mls/hr IV DAILY JERI Stop: 02/14/25 11:59 Levothyroxine Sodium (Levothyroxine Sodium 50 Mcg Tablet) 50 mcg PO QDAC2 [facility] Metoprolol Succinate (Metoprolol Succinate 25 Mg Tab.Er.24h) 25 mg PO DAILY [facility] Mirtazapine (Mirtazapine 15 Mg Tablet) 15 mg PO BEDTIME JERI Risperidone (Risperidone 1 Mg Tablet) 3 mg PO BEDTIME [facility] Sodium Chloride (0.9% Sodium Chloride 10 Ml Disp.Syrin) 1 syr IVF PRN PRN PRN Reason: To flush IV ferrous sulfate 324 mg (65 mg iron) tablet,delayed release 324 mg PO DAILY 08/01/19 [History Confirmed 02/11/25] montelukast 10 mg tablet (Singulair) 10 mg PO BEDTIME 08/01/19 [History Confirmed 02/11/25] atorvastatin 80 mg tablet 80 mg PO QPM 02/27/24 [History Confirmed 02/11/25] bumetanide 1 mg tablet 1 mg PO DAILY 02/27/24 [History Confirmed 02/11/25] denosumab 60 mg subcut .Q6MOS 02/27/24 [History Confirmed 02/11/25] levocetirizine 5 mg tablet (Xyzal) 5 mg PO BEDTIME 02/27/24 [History Confirmed 02/11/25] acetaminophen 325 mg tablet (Tylenol) 325 mg PO Q6H PRN fever or pain 09/19/24 [History Confirmed 02/11/25] levothyroxine 50 mcg tablet (Synthroid) 50 mcg PO QDAY 09/19/24 [History Confirmed 02/11/25] famotidine 20 mg tablet 20 mg PO 2XD 01/09/25 [History Confirmed 02/11/25] omeprazole 20 mg capsule,delayed release 20 mg PO DAILY 01/09/25 [History Confirmed 02/11/25] mirtazapine 15 mg tablet (Remeron) 15 mg PO QHS #30 tabs 01/28/25 [Rx Confirmed 02/11/25] risperidone 2 mg tablet (Risperdal) 2 mg PO QAM #30 tabs 01/28/25 [Rx Confirmed 02/11/25] risperidone 3 mg tablet (Risperdal) 3 mg PO QHS #30 tabs 01/28/25 [Rx Confirmed 02/11/25] budesonide-formoterol HFA 160 mcg-4.5 mcg/actuation aerosol inhaler 2 inh inhalation DAILY 02/11/25 [History Confirmed 02/11/25] cyanocobalamin (vitamin B-12) 1,000 mcg tablet (Vitamin B-12) 1,000 mcg PO BEDTIME 02/11/25 [History Confirmed 02/11/25] metoprolol succinate 25 mg tablet,extended release 24 hr 25 mg PO DAILY 02/11/25 [History Confirmed 02/11/25] Opioid Naive vs. Tolerant Does Patient Take Opioids?: No Is Patient Opioid Naive?: No What is Opioid Naive?: *Opioid Naive implies the patient is not already taking opioids or not chronically receiving opioids on a daily basis. *PRN dosing is not "usually" associated with tolerance. *Patients are at higher risk of over-sedation and aspiration. Is Patient Opioid Tolerant?: No What is Opioid Tolerant?: *Opioid Tolerance implies less than the expected response to an opioid. *Acquired tolerance is defined by the patient taking 60mg of oral morphine daily (or equianalgesic dose of another opioid) for 1 week or more. *Often associated with chronic pain. *May take more than usual dose to achieve desired pain control. Review of Systems Constitutional: Reports Fatigue and Weakness Head: Reports Normocephalic Eyes: Reports No symptoms Cardiovascular: Reports No symptoms Respiratory: Reports Cough, Shortness of air and Other (productive cough) Gastrointestinal: Reports No symptoms Physical examination Most Recent Vital Signs: Most Recent Vital Signs Temperature 97.6 F 02/11/25 10:00 Temperature Source Temporal Artery Scan 02/11/25 10:00 Temperature Source Infrared 02/11/25 05:44 Pulse Rate 68 02/11/25 10:00 Respiratory Rate 14 02/11/25 10:00 Blood Pressure 117/52 L 02/11/25 10:00 Blood Pressure Mean 73 02/11/25 10:00 Blood Pressure Left Arm 105/57 02/11/25 07:44 Blood Pressure Location Left Arm 02/11/25 10:00 Blood Pressure Position Supine 02/11/25 10:00 O2 Sat by Pulse Oximetry 97 02/11/25 11:17 Oxygen Delivery Method Nasal Cannula 02/11/25 11:17 Oxygen Flow Rate 2 02/11/25 11:17 Height 5 ft 2 in 02/11/25 07:44 Weight 73.6 kg 02/11/25 07:44 Telemetry Type Bedside Monitor 02/11/25 08:03 Telemetry Monitoring Started 02/11/25 08:03 Telemetry Heart Rate 70 02/11/25 08:03 Telemetry SPO2 95 02/11/25 08:03 EKG MI Interval 0.16 02/11/25 08:03 EKG QRS Interval 0.08 02/11/25 08:03 Appearance: Positive Alert and Oriented x3 and Ill-Appearing Skin: Negative Rashes, Jaundice, [place], Warm, Good Turgor, Good Color, Erythema, Nodules, Pet[place]ia, [place], Ecchymosis, Other or Not Examined HEENT: Negative Normocephalic, Atraumatic, Visible or Palable Masses, Depressions, Scaring, Oral Mucous Moist, PERRLA, Other or Not Examined Neck: Negative Supple, Lesions, Bruits, Adenopathy, JVD, Non-Enlarged Thyroid, Non-Tender Thyroid, Midline Trachea, Other or Not Examined Chest/Lungs: Positive Rales and Rhonci; Negative Clear to Auscultation Bilaterally Heart: Positive RRR GI/: Positive Soft Extremities: Negative Edema Psychiatric: Positive Oriented x4 Labs This Visit Labs This Visit: Labs This Visit 02/10/25 02/10/25 02/11/25 22:35 23:30 00:05 WBC 13.25 H RBC 4.19 L Hgb 11.9 L Hct 39.7 MCV 94.7 MCH 28.4 MCHC 30.0 L RDW Coeff of Jasmin 14.4 Plt Count 165 Immature Gran % (Auto) 0.4 Neut % (Auto) 89.4 H Lymph % (Auto) 4.9 L [place] % (Auto) 4.5 Eos % (Auto) 0.5 Baso % (Auto) 0.3 Neut # (Auto) 11.9 H Lymph # (Auto) 0.7 [place] # (Auto) 0.6 Eos # (Auto) 0.1 Baso # (Auto) 0.0 Immature Gran # (Auto) 0.1 PT 10.3 INR 0.99 APTT 24.1 Sodium 139.5 Potassium 4.06 Chloride 101.0 Carbon Dioxide 29.9 Anion Gap 12.66 BUN 20.4 H Creatinine 1.08 Estimated GFR (MDRD) 49.00 BUN/Creatinine Ratio 18.88 Glucose 159.5 H Lactic Acid 1.76 Calcium 9.14 Magnesium 1.66 Total Bilirubin 0.66 AST 38.0 H ALT 26.2 Alkaline Phosphatase 65.4 Troponin I 0.017 NT-Pro-B Natriuret Pep 87 Total Protein 6.96 Albumin 4.17 Globulin 2.79 Albumin/Globulin Ratio 1.49 Urine Color Yellow Urine Clarity Clear Urine pH 5.5 Ur Specific [place] 1.015 Urine Protein Negative Urine Glucose (UA) Negative Urine Ketones Negative Urine Blood Negative Urine Nitrite Negative Urine Bilirubin Negative Urine Urobilinogen 0.2 Ur Leukocyte Esterase Negative Influ A Molecular Assay Negative by naat Influ B Molecular Assay Negative by naat SARS CoV-2 RNA Rapid CLARE Negative Imaging Imaging: CT CHEST WITHOUT CONTRAST HISTORY: Cough TECHNIQUE: [address] chest without contrast FINDINGS: Movement artifact is inhibiting. Groundglass and patchy consolidative change of the bilateral lower lobes. Atherosclerotic calcification of the aorta and coronary arteries. No mediastinal lymphadenopathy. Right approach sclerosis right chest wall implantable device. Right shoulder arthroplasty. No acute chest wall abnormality. No acute findings of the upper abdomen. IMPRESSION: 1. Inhibited study 2. Right greater than left patchy lung base groundglass and consolidated changes suspect for pneumonia Review Statement Review Statement: I have independently reviewed and interpreted the labs/EKGs/imaging that were ordered by the ER provider. I have reviewed all outside records that are av ailable currently in our EMR including imaging/notes/labs from previous visits. Assessment (1) Hypoxic respiratory failure: Status: Acute Code(s): J96.91 - Respiratory failure, unspecified with hypoxia SNOMED Code(s): 35234743388785919 Plan Plan: Acute hypoxic respiratory failure due to CAP -continue supplemental oxygen with attempts to wean to RA -begin IV rocephin and azithromycin -follow blood cultures -CT scan showing bilateral lower lobe pneumonia -LA negative -if possible, obtain sputum culture? -prn tylenol for fever -duoneb and breathing treatments p.r.n. Hyperlipidemia -continue home atorvastatin Iron deficiency anemia -continue ferrous sulfate Hypothyroidism -continue Synthroid Hypertension -hold home Metoprolol at this time GERD -ppi DVT Prophylaxis: Enoxaparin Time Spent: Greater than 80 minutes spent with patient, 50% of the time spent with this patient was devoted to counseling and coordination of care. Advanced Care Planning: [15] minutes spent discussing advance care planning. Smoking Cessation: 3-10 minutes spent discussing smoking cessation. Admit to: Genaro Corral PA-C Discussed Plan of Care with Dr. Nava Medications Medication Orders: Medications Ordered Category Date Time Status 0.9 % Sodium Chloride [Saline Flush] Meds 02/10/25 22:30 Active 1 syr IVF PRN PRN
[2025-02-11] MEDS: SYNTHROID PO SCH (13:02)
[2025-02-11] MEDS: ZITHROMAX PO SCH (13:03)
[2025-02-11] MEDS: ROCEPHIN 1 GM/50 ML D5W 1 GM/50 ML BAG IV SCH (13:03)
--- NOTE | 2025-02-11 16:21 | RS.PTINEVL ---
Subjective Patient information Date of Evaluation: 02/11/25 Date of Arrival on Unit: 02/10/25 Admitted From:: Home Diagnosis: pneumonia, hypoxia Usual Living Arrangement: Alone Living Arrangement Comments: pt lives alone, has help at home each day for a few hours. Home Environment: Apartment, Stairs (few) and Rail Medical History: Hypertension, CVA/TIA, Dementia and Arthritis Medical History Comments:: GERD, thyroid dz, osteoporosis, anxiety LATEX ALLERGY?: No Surgical History: Shoulder Replacement (right ), Cholecystectomy, Tonsillectomy and Hysterectomy Surgical History Comments:: inspire device implant Medications: see chart Subjective Information/ Patient Comments:: pt states that she is maybe feeling a little better. States she sat up for a few hours this am. 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 Current Level of Function: Partially Dependent Current Equipment Used at Home: Rolling Walker, shower chair, Interventions Objective Patient Orientation: Person and Place Current Interventions: Oxygen (1 liter ) and Telemetry Observation: pt with edema BUE and BLE Range of Motion ROM Right Upper Extremity AROM: Slight limitation (limited shld flex ) Left Upper Extremity AROM: WFL's Right Lower Extremity AROM: WFL's Left Lower Extremity AROM: WFL's Muscle Strength Muscle Strength Right Upper Extremity: Mild Weakness (shld flex 3-/5, elbow flex/ext 4-/5) Left Upper Extremity: Mild Weakness (shld flex 4-/5, elbow flex/ext 4/5) Right Lower Extremity: Mild Weakness (hip flex 4-/5, knee flex 4-/5, ext 4/5, ankle 4/5) Left Lower Extremity: Mild Weakness (hip flex 4/5, knee flex/ext 4/5, ankle 4/5 ) Sensation Sensation Right Upper Extremity: Impaired Left Upper Extremity: Impaired Right Lower Extremity: Impaired Left Lower Extremity: Impaired Comments: Reports n/t in B hands and feet. Palpation Palpation Findings: None/Normal Balance Sitting Balance and Reactions Static Sitting Balance: Fair Dynamic Sitting Balance: Poor Standing Balance and Reactions Static Standing Balance: Poor Dynamic Standing Balance: Poor Standing Equilibrium Reactions: Delayed Left and Delayed Right Standing Protective Reactions: Delayed Left and Delayed Right Comments Balance Assessment Comments: pt able to maintain static sitting balance against min challenges. Functional Mobility Bed Mobility Rolling R/L: Min Assist and 1 person assist Supine to Sit: Min Assist and 1 person assist Sit to Supine: Min Assist and 1 person assist Transfers Sit to Stand: CGA and 1 person assist Stand to Sit: CGA and 1 person assist Safety Awareness Safety Awareness: Poor JEM INDEX SCORE: n/a Ambulation Ambulation Assistive Device Used: Rolling Walker Orthotic/Prosthetic Device: No Distance: 80ft Assistance needed with Ambulation: CGA Quality of Ambulation: increased lat sway Gait Deviations: Ataxic gait, Forward posture, Short stride and Deviates from path Factors Affecting Ambulation: Decreased Balance, Weakness, Decreased Coordination, Decreased ROM, Decreased Safety, Cognitive Status and Limited Endurance Treatment time Units charged Gait trainin Time with patient Length of Evaluation: 19 Total treatment time: 27 Patient Education Education Patient Education: Home Exercise Program and Education of Plan of Care Teaching Recipient: Patient Teaching Methods: Discussion Comments: discussion regarding POC Assessment Assessment Problem List:: Decreased level of function, Requires training/education, Decreased safety/Risk of falls, Weakness and Cognitive status limits abilities Rehab Potential: Fair Further Therapy Indicated?: Yes Candidate for Swing Bed for Therapy Services?: Feel pt may not be a candidate for swing bed, may benefit from exterminator rehab due to limited assist at home. Evaluation Complexity: HISTORY: Medium, EXAM OF BODY SYSTEMS: Medium, CLINICAL PRESENTATION: Medium and CLINICAL DECISION MAKING: Medium Patient's Goal(s): Walk better and get stronger Short Term Goals GOAL #1: pt demonstrate rolling and scooting to edge of bed independently. Goal to be met by: 02/14/25 GOAL #2: Transfer sup to/from sit CGA Goal to be met by: 02/14/25 GOAL #3: Transfer sit to/from stand CGA to SBA Goal to be met by: 02/14/25 GOAL #4: pt amb with rwx 100ft with CGA no LOB. Goal to be met by: 02/14/25 GOAL #5: Improve BLE strength 4 to 4+/5 Goal to be met by: 02/14/25 GOAL #6: . Loom Blower Goals GOAL #1: Transfer sup to/from sit to/from stand SBA to independent. Goal to be met by: 02/17/25 GOAL #2: pt amb functional household distances with rwx with SBA x 1 Goal to be met by: 02/17/25 GOAL #3: Ascend/descend 2 steps with HR CGA Goal to be met by: 02/17/25 Plan Plan of Care: Therapeutic EX and Therapeutic Activity Other:: gait training Frequency of Treatment: 1-2 X day, as tolerated Duration of Treatment: 5 days Anticipated Discharge Destination: undetermined Treatment Diagnosis (ICD 10 Codes): impaired balance R 26.81 ataxic gait R 26.0 weakness M62.81 risk of falls Z91.81 Has the Physician been added for Co-signature?: Yes
[2025-02-11] MEDS: LIPITOR PO SCH (17:14)
[2025-02-11] MEDS: PEPCID PO SCH (20:52)
[2025-02-11] MEDS: REMERON PO SCH (20:52)
[2025-02-11] MEDS: RISPERDAL PO SCH (20:52)
[2025-02-12 05:35] LABS: IMMATURE GRANULOCYTE # (AUTO) 0.0 (0.0-1.0); IMMATURE GRANULOCYTE % (AUTO) 0.3 % (0.0-5.0); RDW COEFFICIENT OF VARIATION 14.6 % (11.6-14.8)
[2025-02-12 05:46] LABS: CREATININE 1.01 mg/dL (0.60-1.30)
[2025-02-12] MEDS: TYLENOL PO PRN (06:03)
[2025-02-12] MEDS: SYMBICORT 160-4.5 MCG INHALER IH SCH ×2 (09:26→20:13)
[2025-02-12] MEDS: FERROUS SULFATE PO SCH (09:26)
[2025-02-12] MEDS: LOVENOX SUBCUT SCH (09:27)
[2025-02-12] MEDS: TOPROL XL PO SCH (09:27)
[2025-02-12] MEDS: BUMEX PO SCH (09:27)
--- NOTE | 2025-02-12 12:40 | PCM.PROG ---
Date/Time Seen Date Seen by Provider: 02/12/25 Time Seen by Provider: 08:50 Provider Provider: [facility] Chief Complaint Chief Complaint: PNEUMONIA Subjective Subjective: Patient has no concerns, feeling better. Still requiring some oxygen. Patient is alert and oriented today, although flat affect. Nursing reports she had difficulty swallowing her pills. Objective Appearance: Positive No Apparent Distress and Alert and Oriented x3 Chest/Lungs: Positive Clear to Auscultation Bilaterally; Negative Rales, Rhonci or Wheezes Heart: Positive RRR GI/: Positive Soft, Nontender, Bowel Sounds Normal and No Distention Neurological: Positive Cranial Nerves Intact, Alert, Oriented and Other (+generalized weakness ) Vital Signs Vital Signs: Vital Signs: Last 24 Hours 02/11/25 13:00 02/11/25 13:44 02/11/25 14:00 Temperature 98.6 F Temperature Source Oral Pulse Rate 76 Respiratory Rate 16 Blood Pressure 137/63 Blood Pressure Mean 87 Blood Pressure Location Left Arm Blood Pressure Position Supine O2 Sat by Pulse Oximetry 95 Oxygen Delivery Method Nasal Cannula Room Air Oxygen Flow Rate 2 2 Telemetry Type Bedside Monitor Telemetry Monitoring Continues Telemetry Heart Rate 82 Telemetry SPO2 95 EKG AR Interval 0.16 EKG QRS Interval 0.06 Telemetry Strip Reading SR 02/11/25 18:00 02/11/25 19:00 02/11/25 19:51 Temperature 98.2 F Temperature Source Temporal Artery Scan Pulse Rate 86 Respiratory Rate 15 Blood Pressure 148/69 H Blood Pressure Mean 95 Blood Pressure Location Left Arm Blood Pressure Position Supine O2 Sat by Pulse Oximetry 93 L 95 Oxygen Delivery Method Nasal Cannula Nasal Cannula Oxygen Flow Rate 1 1 Telemetry Type Bedside Monitor Telemetry Monitoring Continues Telemetry Heart Rate 82 Telemetry SPO2 96 EKG AR Interval 0.18 EKG QRS Interval 0.07 Telemetry Strip Reading SR 02/11/25 20:00 02/11/25 22:00 02/12/25 01:00 Temperature 97.3 F L Temperature Source Temporal Artery Scan Pulse Rate 86 Respiratory Rate 18 Blood Pressure 158/67 H Blood Pressure Mean 97 Blood Pressure Location Right Arm Blood Pressure Position Supine O2 Sat by Pulse Oximetry 93 L Oxygen Delivery Method Nasal Cannula Room Air Oxygen Flow Rate 2 Telemetry Type Bedside Monitor Telemetry Monitoring Continues Telemetry Heart Rate 77 Telemetry SPO2 95 EKG AR Interval 0.20 EKG QRS Interval 0.09 Telemetry Strip Reading SR 02/12/25 01:30 02/12/25 04:40 02/12/25 05:26 Temperature 96.5 F L Temperature Source Temporal Artery Scan Pulse Rate 73 66 Respiratory Rate 16 16 Blood Pressure 138/57 L 142/61 H Blood Pressure Mean 84 88 Blood Pressure Location Right Arm Right Arm Blood Pressure Position Supine Supine O2 Sat by Pulse Oximetry 94 L 92 L 92 L Oxygen Delivery Method Nasal Cannula Nasal Cannula Nasal Cannula Oxygen Flow Rate 1 1 1 Telemetry Type Telemetry Monitoring Telemetry Heart Rate Telemetry SPO2 EKG AR Interval EKG QRS Interval Telemetry Strip Reading 02/12/25 07:00 02/12/25 08:00 02/12/25 10:00 Temperature 97 F L Temperature Source Temporal Artery Scan Pulse Rate 66 Respiratory Rate 15 Blood Pressure 126/70 Blood Pressure Mean 88 Blood Pressure Location Right Arm Blood Pressure Position Supine O2 Sat by Pulse Oximetry 96 Oxygen Delivery Method Room Air Room Air Oxygen Flow Rate Telemetry Type Bedside Monitor Telemetry Monitoring Continues Telemetry Heart Rate 77 Telemetry SPO2 93 EKG AR Interval 0.15 EKG QRS Interval 0.09 Telemetry Strip Reading sr 02/12/25 10:27 Temperature Temperature Source Pulse Rate Respiratory Rate Blood Pressure Blood Pressure Mean Blood Pressure Location Blood Pressure Position O2 Sat by Pulse Oximetry 96 Oxygen Delivery Method Nasal Cannula Oxygen Flow Rate 1 Telemetry Type Telemetry Monitoring Telemetry Heart Rate Telemetry SPO2 EKG AR Interval EKG QRS Interval Telemetry Strip Reading Lab Results Lab Results: Lab Results: Last 24 Hours 02/12/25 05:24 WBC 9.47 RBC 4.08 L Hgb 11.8 L Hct 38.3 MCV 93.9 MCH 28.9 MCHC 30.8 L RDW Coeff of Jasmin 14.6 Plt Count 163 Immature Gran % (Auto) 0.3 Neut % (Auto) 63.5 Lymph % (Auto) 25.1 [place] % (Auto) 6.3 Eos % (Auto) 4.3 Baso % (Auto) 0.5 Neut # (Auto) 6.0 Lymph # (Auto) 2.4 [place] # (Auto) 0.6 Eos # (Auto) 0.4 Baso # (Auto) 0.1 Immature Gran # (Auto) 0.0 Sodium 140.4 Potassium 4.37 Chloride 103.8 Carbon Dioxide 27.5 Anion Gap 13.47 BUN 18.6 H Creatinine 1.01 Estimated GFR (MDRD) 52.00 BUN/Creatinine Ratio 18.41 Glucose 139.8 H Calcium 9.33 Magnesium 2.16 Additional Comments Additional Comments: I have independently reviewed and interpreted the labs/EKGs/imaging ordered during this hospital stay. I have reviewed outside records that are available in our EMR that pertain to medical stay including imaging/notes/labs from previous visits. Active Medications Active Medications: Medications Generic Name Dose Route Start Last Admin Trade Name Freq PRN Reason Stop Dose Admin Acetaminophen 325 mg 02/11/25 11:48 02/12/25 06:03 Acetaminophen 325 Mg Tablet PO 325 mg Q6H PRN Administration Pain Atorvastatin Calcium 80 mg 02/11/25 17:00 02/11/25 17:14 Atorvastatin Calcium 20 Mg Tablet PO 80 mg QPM JERI Administration Azithromycin 500 mg 02/11/25 12:00 02/12/25 09:27 Azithromycin 250 Mg Tablet PO 02/13/25 11:59 500 mg DAILY JERI Administration Budesonide/Formoterol Fumarate 2 puff 02/12/25 09:00 02/12/25 09:26 Budesonide/Formoterol Fumarate 160/4.5 Mcg Inhaler IH 2 puff DAILY JERI Administration Bumetanide 1 mg 02/12/25 09:00 02/12/25 09:27 Bumetanide 1 Mg Tablet PO 1 mg DAILY JERI Administration Enoxaparin Sodium 30 mg 02/12/25 09:00 02/12/25 09:27 Enoxaparin Sodium 30 Mg/0.3 Ml Syr SUBCUT 30 mg DAILY JERI Administration Famotidine 20 mg 02/11/25 21:00 02/12/25 09:26 Famotidine 20 Mg Tablet PO 20 mg 2XD JERI Administration Ferrous Sulfate 324 mg 02/12/25 09:00 02/12/25 09:26 Ferrous Sulfate 324 Mg Tablet. PO 324 mg DAILY JERI Administration CEFTRIAXONE/D5W 1 GM PREMIX 1 gm in 50 mls @ 100 mls/hr 02/11/25 12:00 02/12/25 09:28 Rocephin 1 Gm/50 Ml D5w IV 02/14/25 11:59 100 mls/hr DAILY JERI Administration Levothyroxine Sodium 50 mcg 02/11/25 12:00 02/12/25 05:21 Levothyroxine Sodium 50 Mcg Tablet PO 50 mcg QDAC2 JERI Administration Metoprolol Succinate 25 mg 02/12/25 09:00 02/12/25 09:27 Metoprolol Succinate 25 Mg Tab.Er.24h PO 25 mg DAILY JERI Administration Mirtazapine 15 mg 02/11/25 21:00 02/11/25 20:52 Mirtazapine 15 Mg Tablet PO 15 mg BEDTIME JERI Administration Risperidone 3 mg 02/11/25 21:00 02/11/25 20:52 Risperidone 1 Mg Tablet PO 3 mg BEDTIME JERI Administration Sodium Chloride 1 syr 02/11/25 21:00 02/12/25 05:21 0.9% Sodium Chloride 10 Ml Disp.Syrin IVF 1 syr Q8H JERI Administration Assessment (1) Hypoxic respiratory failure: Status: Acute Code(s): J96.91 - Respiratory failure, unspecified with hypoxia SNOMED Code(s): 79178010004007095 Plan Plan: 1. Acute hypoxic respiratory failure due to CAP -continue supplemental oxygen with attempts to wean to RA -cont IV rocephin and azithromycin -follow blood cultures -CT scan showing bilateral lower lobe pneumonia -LA negative -prn tylenol for fever -duoneb and breathing treatments p.r.n. 2. Hyperlipidemia -continue home atorvastatin 3. Iron deficiency anemia -continue ferrous sulfate 4. Hypothyroidism -continue Synthroid 5. Hypertension -hold home Metoprolol at this time 6. GERD -ppi 7. Dysphagia - ST consult 8. Asthenia - PTOT consult 9. Recent c diff - Isolation, monitor for diarrhea DVT Prophylaxis: Enoxaparin Review Statement Review Statement: I have personally discussed and reviewed the patient's visit/currently labs/imaging/decision making with Dr. Nava, my supervising attending. Greater that 50 minutes spent with patient, 50% of the time spent with this patient was devoted to counseling and coordination of care.
--- NOTE | 2025-02-12 14:24 | RS.SWEVAL ---
Subjective Date of Evaluation: 02/12/25 Diagnosis: pneumonia, dysphagia Current Diet: regular Current Subjective/complaints:: Pt was referred for clinical bedside eval due to reports of difficulty with medications and pocketing food during meals. General Information General Ability to Follow Directions: Good Oral Expression Ability: No Impairment Oral-Facial Assessment Face Facial Symmetry: Left Droop (mild) Comments/Additional Info. Comments:: Patient noted to pocket food on her left side during her meal. Food Presentation Solids Food Presented: Regular (chopped meat ) Behaviors/Comments: cut into bite sized pieces and patient was noted to eat fast and put too much in her mouth. also pocketed food Food Presented: Mechanical Soft (soft vegetables) Behaviors/Comments: no difficulty noted- cues to eat slower and chew food well Food Presented: Pureed (mashed potatoes) Behaviors/Comments: no difficulty noted Liquids Liquid Presented: Thin (cup with straw) Behaviors/Comments: coughing noted on multiple drinks Liquid Presented: [place] (cup with straw ) Behaviors/Comments: no difficulty observed Recommendations: Dysphagia Evaluation Dietary Recommendations: Minced and Moist and Mildly Thick - [place] Comments:: Water in between meals only Meds with pudding or applesauce Dysphagia Swallow Precautions/Strategies: Sitting Upright (90 deg), Double Swallow and Small Bites and Sips Comments:: cues to clean food out of buccal cavities Summary Dysphagia Evaluation Summary: Pt observed with lunch tray containing a variety of food consistencies. Pt was prompted to slow down and take small bites multiple times. Patient was also observed to cough when drinking thin liquids with her meal. Pocketing on the left side while eating. Further Therapy Indicated?: Yes Rehab Potential: Good Short Term Goals Goal #1: Tolerate diet Goal to be met by: 02/13/25 Goal #2: trials of thin liquids Goal to be met by: 02/13/25 Goal #3: Patient education on safe swallow techniques Goal to be met by: 02/13/25 [employer] Goals Goal #1: Tolerate least restrictive diet to maintain nutrition/hydration. Goal to be met by: 02/13/25 Plan Duration of Treatment: One Time Treatment Frequency of Treatment: One time treatment Treatment Code (1) Hypoxic respiratory failure: Code(s): J96.91 - Respiratory failure, unspecified with hypoxia (2) Dysphagia: Code(s): R13.10 - Dysphagia, unspecified
[2025-02-12] MEDS: SINGULAIR PO SCH (20:12)
[2025-02-13] MEDS: PRILOSEC PO SCH (05:31)
[2025-02-13 05:48] LABS: IMMATURE GRANULOCYTE # (AUTO) 0.0 (0.0-1.0); IMMATURE GRANULOCYTE % (AUTO) 0.4 % (0.0-5.0); RDW COEFFICIENT OF VARIATION 14.5 % (11.6-14.8)
[2025-02-13 06:02] LABS: CREATININE 1.08 mg/dL (0.60-1.30)
[2025-02-13] MEDS: RISPERDAL PO SCH (08:37)
--- NOTE | 2025-02-13 08:49 | RS.DYSPHTX ---
Dysphagia Treatment Note Date of Note: 02/13/25 Time of Treatment: 07:50 Subjective: Barbara participated in skilled speech therapy. She was seen with her breakfast meal. Total treatment time: 30 Short Term Goals Goal #1: Tolerate diet Activity/Accuracy: Patient was seen with breakfast meal. She tolerated with no s/s of aspiration. She did cough when she took consecutive drinks, however when she took 1 drink at a time as instructed, she had no difficulty. Goal #2: trials of thin liquids Activity/Accuracy: water in between meals only Goal #3: Patient education on safe swallow techniques Activity/Accuracy: discussed safe swallow techniques Snf Goals Goal #1: Tolerate least restrictive diet to maintain nutrition/hydration. Assessment: Patient is recommended to stay on this diet at this time. Units Charged Swallowing Therapy: 1
--- NOTE | 2025-02-13 10:48 | PCM.PROG ---
Date/Time Seen Date Seen by Provider: 02/13/25 Time Seen by Provider: 08:30 Provider Provider[facility] Chief Complaint Chief Complaint: PNEUMONIA Subjective Subjective: Patient had formed BM. On RA today. Working with therapy. No complaints. Objective Appearance: Positive No Apparent Distress and Alert and Oriented x3 Chest/Lungs: Positive Clear to Auscultation Bilaterally; Negative Rales, Rhonci or Wheezes Heart: Positive RRR GI/: Positive Soft, Nontender, Bowel Sounds Normal and No Distention Neurological: Positive Cranial Nerves Intact, Alert, Oriented and Other (+generalized weakness ) Vital Signs Vital Signs: Vital Signs: Last 24 Hours 02/12/25 13:00 02/12/25 14:00 02/12/25 14:00 Temperature 96.7 F L Temperature Source Temporal Artery Scan Pulse Rate 79 Respiratory Rate 16 Blood Pressure 125/58 L Blood Pressure Mean 80 Blood Pressure Location Right Arm Blood Pressure Position O2 Sat by Pulse Oximetry 93 L Oxygen Delivery Method Room Air Room Air Telemetry Type Bedside Monitor Telemetry Monitoring Continues Telemetry Heart Rate 78 Telemetry SPO2 97 EKG MN Interval 0.16 EKG QRS Interval 0.08 Telemetry Strip Reading SR 02/12/25 18:00 02/12/25 19:00 02/12/25 19:42 Temperature 96.7 F L Temperature Source Temporal Artery Scan Pulse Rate 79 Respiratory Rate 21 H Blood Pressure 153/89 H Blood Pressure Mean 110 Blood Pressure Location Left Arm Blood Pressure Position O2 Sat by Pulse Oximetry 96 Oxygen Delivery Method Room Air Room Air Telemetry Type Bedside Monitor Telemetry Monitoring Continues Telemetry Heart Rate 82 Telemetry SPO2 95 EKG MN Interval 0.14 EKG QRS Interval 0.06 Telemetry Strip Reading SR 02/12/25 20:00 02/12/25 21:42 02/13/25 01:00 Temperature Temperature Source Temporal Artery Scan Pulse Rate 85 Respiratory Rate 17 Blood Pressure 150/91 H Blood Pressure Mean 110 Blood Pressure Location Left Arm Blood Pressure Position Supine O2 Sat by Pulse Oximetry 97 93 L Oxygen Delivery Method Room Air Room Air Telemetry Type Bedside Monitor Telemetry Monitoring Continues Telemetry Heart Rate 83 Telemetry SPO2 92 L EKG MN Interval 0.20 EKG QRS Interval 0.07 Telemetry Strip Reading SR 02/13/25 01:56 02/13/25 05:11 02/13/25 05:35 Temperature 97.2 F L Temperature Source Temporal Artery Scan Pulse Rate 76 85 Respiratory Rate 16 16 Blood Pressure 142/65 H 147/70 H Blood Pressure Mean 90 95 Blood Pressure Location Left Arm Left Arm Blood Pressure Position Supine Supine O2 Sat by Pulse Oximetry 94 L 96 94 L Oxygen Delivery Method Room Air Room Air Room Air Telemetry Type Telemetry Monitoring Telemetry Heart Rate Telemetry SPO2 EKG MN Interval EKG QRS Interval Telemetry Strip Reading 02/13/25 08:00 02/13/25 10:00 Temperature Temperature Source Pulse Rate Respiratory Rate Blood Pressure Blood Pressure Mean Blood Pressure Location Blood Pressure Position O2 Sat by Pulse Oximetry 94 L Oxygen Delivery Method Room Air Room Air Telemetry Type Telemetry Monitoring Telemetry Heart Rate Telemetry SPO2 EKG MN Interval EKG QRS Interval Telemetry Strip Reading Lab Results Lab Results: Lab Results: Last 24 Hours 02/13/25 05:39 WBC 7.08 RBC 3.94 L Hgb 11.4 L Hct 37.0 MCV 93.9 MCH 28.9 MCHC 30.8 L RDW Coeff of Jasmin 14.5 Plt Count 177 Immature Gran % (Auto) 0.4 Neut % (Auto) 60.6 Lymph % (Auto) 25.7 [place] % (Auto) 7.1 Eos % (Auto) 5.4 Baso % (Auto) 0.8 Neut # (Auto) 4.3 Lymph # (Auto) 1.8 [place] # (Auto) 0.5 Eos # (Auto) 0.4 Baso # (Auto) 0.1 Immature Gran # (Auto) 0.0 Sodium 142.1 Potassium 4.05 Chloride 104.0 Carbon Dioxide 30.4 H Anion Gap 11.75 BUN 15.7 Creatinine 1.08 Estimated GFR (MDRD) 49.00 BUN/Creatinine Ratio 14.53 Glucose 120.6 H Calcium 9.34 Magnesium 2.13 Additional Comments Additional Comments: I have independently reviewed and interpreted the labs/EKGs/imaging ordered during this hospital stay. I have reviewed outside records that are available in our EMR that pertain to medical stay including imaging/notes/labs from previous visits. Active Medications Active Medications: Medications Generic Name Dose Route Start Last Admin Trade Name Freq PRN Reason Stop Dose Admin Acetaminophen 325 mg 02/11/25 11:48 02/13/25 06:26 Acetaminophen 325 Mg Tablet PO 325 mg Q6H PRN Administration Pain Atorvastatin Calcium 80 mg 02/11/25 17:00 02/12/25 16:29 Atorvastatin Calcium 20 Mg Tablet PO 80 mg QPM JERI Administration Azithromycin 500 mg 02/11/25 12:00 02/13/25 08:36 Azithromycin 250 Mg Tablet PO 02/13/25 11:59 500 mg DAILY JERI Administration Budesonide/Formoterol Fumarate 2 puff 02/12/25 21:00 02/13/25 08:37 Budesonide/Formoterol Fumarate 160/4.5 Mcg Inhaler IH 2 puff BID JERI Administration Bumetanide 1 mg 02/12/25 09:00 02/13/25 08:36 Bumetanide 1 Mg Tablet PO 1 mg DAILY JERI Administration Cefuroxime Axetil 200 mg 02/14/25 09:00 Cefpodoxime Proxetil 200 Mg Tablet PO 02/17/25 08:59 Q12HR JERI Enoxaparin Sodium 30 mg 02/12/25 09:00 02/13/25 08:35 Enoxaparin Sodium 30 Mg/0.3 Ml Syr SUBCUT 30 mg DAILY JERI Administration Famotidine 20 mg 02/11/25 21:00 02/13/25 08:37 Famotidine 20 Mg Tablet PO 20 mg 2XD JERI Administration Ferrous Sulfate 324 mg 02/12/25 09:00 02/13/25 08:36 Ferrous Sulfate 324 Mg Tablet. PO 324 mg DAILY JERI Administration Levothyroxine Sodium 50 mcg 02/11/25 12:00 02/13/25 05:31 Levothyroxine Sodium 50 Mcg Tablet PO 50 mcg QDAC2 JERI Administration Metoprolol Succinate 25 mg 02/12/25 09:00 02/13/25 08:36 Metoprolol Succinate 25 Mg Tab.Er.24h PO 25 mg DAILY JERI Administration Mirtazapine 15 mg 02/11/25 21:00 02/12/25 20:12 Mirtazapine 15 Mg Tablet PO 15 mg BEDTIME JERI Administration Montelukast Sodium 10 mg 02/12/25 21:00 02/12/25 20:12 Montelukast Sodium 10 Mg Tablet PO 10 mg BEDTIME JERI Administration Omeprazole 20 mg 02/13/25 06:00 02/13/25 05:31 Omeprazole 20 Mg Capsule. PO 20 mg QDAC2 JERI Administration Risperidone 3 mg 02/11/25 21:00 02/12/25 20:11 Risperidone 1 Mg Tablet PO 3 mg BEDTIME JERI Administration Risperidone 2 mg 02/13/25 09:00 02/13/25 08:37 Risperidone 1 Mg Tablet PO 2 mg QAM JERI Administration Sodium Chloride 1 syr 02/11/25 21:00 02/13/25 05:30 0.9% Sodium Chloride 10 Ml Disp.Syrin IVF 1 syr Q8H JERI Administration Assessment (1) Hypoxic respiratory failure: Status: Acute Code(s): J96.91 - Respiratory failure, unspecified with hypoxia SNOMED Code(s): 20673110792552769 Plan Plan: 1. Acute hypoxic respiratory failure due to CAP -continue supplemental oxygen with attempts to wean to RA -cont IV rocephin and azithromycin -follow blood cultures -CT scan showing bilateral lower lobe pneumonia -LA negative -prn tylenol for fever -duoneb and breathing treatments p.r.n. 2. Hyperlipidemia -continue home atorvastatin 3. Iron deficiency anemia -continue ferrous sulfate 4. Hypothyroidism -continue Synthroid 5. Hypertension -hold home Metoprolol at this time 6. GERD -ppi 7. Dysphagia - ST consult 8. Asthenia - PTOT consult 9. Recent c diff - Isolation, monitor for diarrhea DVT Prophylaxis: Enoxaparin Dispo: potential dc tomorrow Review Statement Review Statement: I have personally discussed and reviewed the patient's visit/currently labs/imaging/decision making with Dr. Nava, my supervising attending. Greater that 50 minutes spent with patient, 50% of the time spent with this patient was devoted to counseling and coordination of care.
[2025-02-13] MEDS: MUCINEX PO SCH (20:05)
[2025-02-13] MEDS: FLORASTOR PO SCH (20:06)
[2025-02-14] MEDS: TYLENOL PO ONE (04:44)
[2025-02-14 05:21] LABS: IMMATURE GRANULOCYTE # (AUTO) 0.0 (0.0-1.0); IMMATURE GRANULOCYTE % (AUTO) 0.4 % (0.0-5.0); RDW COEFFICIENT OF VARIATION 14.5 % (11.6-14.8)
[2025-02-14 05:37] LABS: CREATININE 0.97 mg/dL (0.60-1.30)
[2025-02-14] MEDS: CEFPODOXIME PROXETIL PO SCH (07:58)
--- NOTE | 2025-02-14 09:56 | DCSUM ---
Admission Date Admission Date: 02/11/25 Discharge Date Discharge Date: 02/14/25 Admission Diagnosis Admission Diagnosis: 1. Acute hypoxic respiratory failure due to CAP 2. CAP Discharge Diagnosis Discharge Diagnosis: 1. Acute hypoxic respiratory failure due to CAP - improved 2. CAP 3. Hyperlipidemia 4. Iron deficiency anemia 5. Hypothyroidism 6. Hypertension 7. GERD 8. Dysphagia 9. Asthenia 10. Recent c diff Hospital Provider Hospital Provider: RAYO COE PA-C, [facility] Primary Care Physician Primary Care Physician: LUKAS BOSS Summary of History and Physical Summary of History and Physical: 84 year old female with a PMH of hypothyroidism, migraines, GERD, multiple falls in the past, depression, and others presented to the ER last night with complaints of shortness of breath and back pain. The patient reported she had a fall a few days ago. She states she was recently at [facility] (review of notes show she presented on 02/06 and 02/07 and was worked up for fever and recurrent diarrhea, but workup was negative for colitis and she was discharged home with carafate Rx). In our ER she was found to have an oxygen saturation of 88% and was placed on 2L and refused an ABG. She was mildly tachycardic and her labs were unremarkable except for a WBC of 13K and a CT scan showing bilateral consolidations. She was given a duoneb, acetylcysteine and a bolus of 1L fluids. Due to her recurrent history of diarrhea and an appointment with ID supposed to have been today she was given a dose of oral vancomycin and admitted for observation. She reports she is feeling a bit better at bedside and she reports she has been coughing up green sputum beginning yesterday. Blood cultures pending. Hospital Course Subjective: Patient was treated with azithromycin and Rocephin. She has been weaned to room air but does occasionally dip down to 89-90% requiring 1 to 2 L. Overall she has done well. She has completed azithromycin. Will need 2 more days of cefpodoxime. She has reportedly been treated for C. difficile in the last c ouple months. She is supposed follow-up with ID outpatient. Due to this we will do the minimum amount of antibiotics needed, will complete only 5 days. She has not had any bowel movements concerning for C. difficile here. She is overall doing well. She was found to have an unsteady gait and overall be weak. She does have frequent falls at home. Patient would benefit from skilled therapy. She is actually agreeable to this as she has been resistant in the past. She is agreeable to go to [facility]. Discharged in stable condition. Of note, patient did have an episode of choking on her medications when trying to swallow and sometimes pockets her food. CHIEF OPHTHALMIC TECHNICIAN consulted. Recommendations as below: Recommendations: Dysphagia Evaluation Dietary Recommendations: Minced and Moist and Mildly Thick - [place] Comments:: Water in between meals only Meds with pudding or applesauce Dysphagia Swallow Precautions/Strategies: Sitting Upright (90 deg), Double Swallow and Small Bites and Sips Comments:: cues to clean food out of buccal cavities Summary Dysphagia Evaluation Summary: Pt observed with lunch tray containing a variety of food consistencies. Pt was prompted to slow down and take small bites multiple times. Patient was also observed to cough when drinking thin liquids with her meal. Pocketing on the left side while eating. Further Therapy Indicated?: Yes Rehab Potential: Good Appearance: Pleasant, No Apparent Distress and Alert HEENT: MMM and Supple CVS: Other (RRR) Abdomen: Soft, Non-Tender and No Distention Respiratory: No Accessory Muscle Use Extremities: No Edema Additional Findings: flat affect Vital Signs: Most Recent Vital Signs Temperature 98.3 F 02/14/25 05:29 Temperature Source Tympanic 02/14/25 05:29 Temperature Source Infrared 02/11/25 05:44 Pulse Rate 84 02/14/25 08:00 Respiratory Rate 22 H 02/14/25 08:00 Blood Pressure 91/48 L 02/14/25 05:29 Blood Pressure Mean 62 02/14/25 05:29 Blood Pressure Left Arm 105/57 02/11/25 07:44 Blood Pressure Location Left Arm 02/14/25 05:29 Blood Pressure Position Sitting 02/14/25 05:29 O2 Sat by Pulse Oximetry 92 L 02/14/25 05:29 Oxygen Delivery Method Room Air 02/14/25 08:00 Oxygen Flow Rate 2 02/13/25 14:00 Height 5 ft 2 in 02/11/25 07:44 Weight 73.6 kg 02/11/25 07:44 Telemetry Type Bedside Monitor 02/14/25 07:00 Telemetry Monitoring Continues 02/14/25 07:00 Telemetry Heart Rate 70 02/14/25 07:00 Telemetry SPO2 92 L 02/14/25 07:00 EKG [place] Interval 0.19 02/14/25 07:00 EKG QRS Interval 0.07 02/14/25 07:00 Telemetry Strip Reading NSR 02/14/25 07:00 Imaging: EXAM: SINGLE VIEW CHEST HISTORY: Follow up pneumonia. COMPARISON: 12/14/2023 FINDINGS: Cardiomediastinal silhouette is unremarkable. Lung volumes are diminished with dependent ground-glass. Lungs are otherwise aerated. There is no pneumothorax. The osseous structures demonstrate degenerative change with right shoulder arthroplasty. IMPRESSION: Mild dependent groundglass may represent atelectasis versus infection. Lab Results Last 24 Hours: 02/14/25 05:14 WBC 8.92 RBC 3.84 L Hgb 11.1 L Hct 37.4 MCV 97.4 MCH 28.9 MCHC 29.7 L RDW Coeff of Jasmin 14.5 Plt Count 126 L Immature Gran % (Auto) 0.4 Neut % (Auto) 78.5 H Lymph % (Auto) 13.9 [place] % (Auto) 4.1 Eos % (Auto) 2.7 Baso % (Auto) 0.4 Neut # (Auto) 7.0 H Lymph # (Auto) 1.2 [place] # (Auto) 0.4 Eos # (Auto) 0.2 Baso # (Auto) 0.0 Immature Gran # (Auto) 0.0 Sodium 137.1 Potassium 3.92 Chloride 103.2 Carbon Dioxide 25.7 Anion Gap 12.12 BUN 14.5 Creatinine 0.97 Estimated GFR (MDRD) 55.00 BUN/Creatinine Ratio 14.94 Glucose 151.2 H Calcium 9.29 Total Bilirubin 0.50 AST 30.5 ALT 28.7 Alkaline Phosphatase 53.9 Total Protein 6.43 Albumin 3.82 Globulin 2.61 Albumin/Globulin Ratio 1.46 Discharge Instructions Discharge Planning: Discharge Planning > [address] John Nava Discharge Medications: Medications at Discharge (Home Meds & RX) ferrous sulfate 324 mg (65 mg iron) tablet,delayed release 324 mg PO DAILY 08/01/19 montelukast 10 mg tablet (Singulair) 10 mg PO BEDTIME 08/01/19 atorvastatin 80 mg tablet 80 mg PO QPM 02/27/24 bumetanide 1 mg tablet 1 mg PO DAILY 02/27/24 denosumab 60 mg subcut .Q6MOS 02/27/24 levocetirizine 5 mg tablet (Xyzal) 5 mg PO BEDTIME 02/27/24 acetaminophen 325 mg tablet (Tylenol) 325 mg PO Q6H PRN fever or pain 09/19/24 levothyroxine 50 mcg tablet (Synthroid) 50 mcg PO QDAY 09/19/24 famotidine 20 mg tablet 20 mg PO 2XD 01/09/25 omeprazole 20 mg capsule,delayed release 20 mg PO DAILY 01/09/25 mirtazapine 15 mg tablet (Remeron) 15 mg PO QHS #30 tabs 01/28/25 risperidone 2 mg tablet (Risperdal) 2 mg PO QAM #30 tabs 01/28/25 risperidone 3 mg tablet (Risperdal) 3 mg PO QHS #30 tabs 01/28/25 budesonide-formoterol HFA 160 mcg-4.5 mcg/actuation aerosol inhaler 2 inh inhalation DAILY 02/11/25 cyanocobalamin (vitamin B-12) 1,000 mcg tablet (Vitamin B-12) 1,000 mcg PO BEDTIME 02/11/25 metoprolol succinate 25 mg tablet,extended release 24 hr 25 mg PO DAILY 02/11/25 Saccharomyces boulardii 250 mg capsule (Florastor) 250 mg PO BID #30 caps 02/14/25 cefpodoxime 200 mg tablet 200 mg PO BIDWM2 #4 tabs 02/14/25 Discharge Plan Discharge Discharge Orders: Discharge Patient (ONCE); Ordered 02/14/25 Ordered By: RAYO COE Activity Restrictions/Additional Instructions: DISCHARGE TO [facility] FOR SKILLED REHAB DIET: PER CHIEF OPHTHALMIC TECHNICIAN ACTIVITY: PTOT, FALL PRECAUTIONS FINISH ANTIBIOTICS PATIENT HAS RECENTLY HAD C DIFF, MONITOR FOR DIARRHEA FOLLOW UP WT PCP WITHIN 3-5 DAYS 02 PRN TO KEEP O2 > 92% Instructions: Pneumonia (ED) Care Plan Goals: Problem: Impaired Respiratory Status Goal: Exhibit optimal respiratory function Instructions: Activities as tolerated Apply oxygen as ordered Elevate head of bed Notify MD of increased congestion Problem: Risk for falls Goal: No falls or injury Instructions: Have no throw rugs on the floor Make sure pathway is clear of all objects Use assistance devices if applicable Patient Disposition: TRANSFER SNF Prescriptions: New Saccharomyces boulardii [Florastor] 250 mg Capsule 250 mg PO BID Qty: 30 0RF cefpodoxime 200 mg Tablet 200 mg PO BIDWM2 Qty: 4 0RF Continued atorvastatin 80 mg tablet 80 mg PO QPM bumetanide 1 mg tablet 1 mg PO DAILY levocetirizine [Xyzal] 5 mg tablet 5 mg PO BEDTIME denosumab [Prolia] 60 mg subcut .Q6MOS famotidine 20 mg tablet 20 mg PO 2XD omeprazole 20 mg capsule,delayed release(DR/EC) 20 mg PO DAILY budesonide-formoterol 160-4.5 mcg/actuation HFA aerosol inhaler 2 inh inhalation DAILY metoprolol succinate 25 mg tablet extended release 24 hr 25 mg PO DAILY cyanocobalamin (vitamin B-12) [Vitamin B-12] 1,000 mcg tablet 1,000 mcg PO BEDTIME ferrous sulfate 324 mg (65 mg iron) tablet,delayed release (DR/EC) 324 mg PO DAILY montelukast [Singulair] 10 mg tablet 10 mg PO BEDTIME acetaminophen [Tylenol] 325 mg tablet 325 mg PO Q6H PRN (Reason: fever or pain) levothyroxine [Synthroid] 50 mcg tablet 50 mcg PO QDAY risperidone [Risperdal] 2 mg tablet 2 mg PO QAM Qty: 30 1RF risperidone [Risperdal] 3 mg tablet 3 mg PO QHS Qty: 30 1RF mirtazapine [Remeron] 15 mg tablet 15 mg PO QHS Qty: 30 1RF Did you review [place] [employer] for ALL controlled substances?: Not Applicable Discussed opioids are addictive and Narcan is available by prescription or from pharmacy.: No Condition: Stable
[2025-02-14 11:26] VITALS: BP 121/70; PULSE 79; RESP 16; TEMP 96.9
== END 2025-02-14 11:40 | DRG 189 ==
LOC: SCU 22:03 → ED 22:03 → SCU 02-11 07:44
PROVIDERS: ADMIT Hospitalist; ATTEND Physician Assistant